=== PATIENT | female | born 1965 | race Caucasian/White ===

== ENCOUNTER 2017-07-07 08:44 | Emergency (ER) | payer SELFPAY ==
[2017-07-07] MEDS ORDERED: Meclizine HCl 25 MG TAB ONE (09:35)
== END 2017-07-07 10:53 | disposition home or self-care (01) ==
LOC: ERS 08:44
DX: R42 Dizziness and giddiness (principal); M32.9 Systemic lupus erythematosus, unspecified; M41.9 Scoliosis, unspecified; M81.0 Age-related osteoporosis without current pathological fracture; E05.90 Thyrotoxicosis, unspecified without thyrotoxic crisis or storm; F41.9 Anxiety disorder, unspecified; F31.9 Bipolar disorder, unspecified; F17.210 Nicotine dependence, cigarettes, uncomplicated; Z79.899 Other long term (current) drug therapy
CPT/HCPCS: 99284

== ENCOUNTER 2017-08-30 16:40 | Emergency (ER) | payer SELFPAY ==
[2017-08-30] MEDS ORDERED: Morphine 4 MG/ML VIAL ONE (17:22)
--- NOTE | 2017-08-30 17:35 | RAD ---
RIGHT HIP TWO VIEWS 08/30/17 INDICATION: Pain. Fall. There is no fracture or dislocation of the right hip. Mild degenerative changes are seen. IMPRESSION: No acute right hip fracture. POS: [facility]
--- NOTE | 2017-08-30 17:35 | RAD ---
FRONTAL VIEW PELVIS 08/30/17 CLINICAL HISTORY: Fall from standing, pain. FINDINGS: There is no fracture or dislocation of the osseous structures of the pelvis. Hip joints are maintaine d in alignment. IMPRESSION: No acute pelvic fracture. POS: [facility]
--- NOTE | 2017-08-30 17:36 | RAD ---
RIGHT ELBOW TWO VIEWS 08/30/17 INDICATION: Fall. Pain. FINDINGS: Mild osteoarthritis of the right elbow is present without fracture or dislocation. No significant remi nt capsular distention. IMPRESSION: No acute fracture of the right elbow. POS: [facility]
--- NOTE | 2017-08-30 18:33 | CT ---
CT PELVIS NONCONTRAST 08/30/17 HISTORY: Fall. Right hip injury. FINDINGS: No fracture or dislocation are apparent. The sacrum is intact. Mild degenerative changes involve the hips, lumbar spine, and pubic symphysis. Large amount of stool is apparent throughout the rectum and partially visualized colon. IMPRESSION: No acute osseous abnormalities are demonstrated. POS: [facility]
[2017-08-30 18:44] LABS: Bilirubin Negative (Negative); Blood, Urine Negative (Negative); Glucose, Urine (Dipstick) Negative (Negative); Ketone, Urine Negative (Negative); Nitrite Negative (Negative); Protein, Urine (Dipstick) Negative (Neg-Trace); Urobilinogen 0.2 mg/dL (0.2-1.0)
[2017-08-30 18:50] LABS: Amphetamine Not Detected (NotDetected); Methadone Not Detected (NotDetected); Methamphetamine Not Detected (NotDetected)
[2017-08-30] MEDS ORDERED: Fentanyl 100 MCG/2 ML VIAL ONE (19:17)
[2017-08-30] MEDS ORDERED: Ketorolac Tromethamine 30 MG/ML VIAL ONE (19:17)
== END 2017-08-30 19:50 | disposition home or self-care (01) ==
LOC: ERS 16:40
DX: S39.011A Strain of muscle, fascia and tendon of abdomen, initial encounter (principal); E05.90 Thyrotoxicosis, unspecified without thyrotoxic crisis or storm; F31.9 Bipolar disorder, unspecified; F41.9 Anxiety disorder, unspecified; F17.210 Nicotine dependence, cigarettes, uncomplicated; Z79.899 Other long term (current) drug therapy; W01.0XXA Fall on same level from slipping, tripping and stumbling without subsequent striking against object, initial encounter
CPT/HCPCS: 72170; 72192; 80306; 81003; 96374; 96375; 99406; J1885; J2270; J3010

== ENCOUNTER 2017-11-16 15:33 | Outpatient (CLI) | payer SELFPAY | END 2017-11-16 15:34 | disposition home or self-care (01) | LOC: BICRAD 15:33 | PROVIDERS: ATTEND Internal Medicine | DX: R05 Cough (principal) | CPT/HCPCS: 71046 ==

== ENCOUNTER 2017-11-30 11:14 | Outpatient (CLI) | payer MEDICAID | END 2017-11-30 11:15 | disposition home or self-care (01) | LOC: BICRAD 11:14 | PROVIDERS: ATTEND Internal Medicine | DX: J32.9 Chronic sinusitis, unspecified (principal) | CPT/HCPCS: 70220 ==

== ENCOUNTER 2018-03-17 17:32 | Emergency (ER) | payer MEDICAID, SELFPAY ==
[2018-03-17] MEDS ORDERED: Ketorolac Tromethamine 30 MG/ML VIAL ONE (17:51)
[2018-03-17] MEDS ORDERED: Lorazepam 2 MG/ML VIAL ONE (17:51)
[2018-03-17 18:09] LABS: #Basophils 0.1 thou/uL (0.0-0.2); #Eosinphils 0.1 thou/uL (0.0-0.7); #Lymphocytes 3.4 thou/uL (1.20-3.40); #Monocytes 1.2 thou/uL (0.11-0.59); #Neutrophils 9.5 thou/uL (1.40-6.50); %Basophils 0.7 % (0.0-1.0); %Eosinophils 0.9 % (0.0-10.0); %Lymphocytes 23.6 % (21.0-51.0); %Monocytes 8.3 % (0.0-10.0); %Neutrophils 66.5 % (42.0-75.0); Hemoglobin 13.8 g/dL (12.0-16.0); Mean Corpuscular HGB CONC 34.5 g/dL (32.0-36.0); Mean Corpuscular Hemoglobin 31.2 pg (27.0-31.0); Mean Corpuscular Volume 90.5 fl (81.0-99.0); Mean Platelet Volume 9.8 fL (7.4-10.4); Platelet Count 225 thou/uL (130-400); RBC Distribution Width 13.8 % (11.5-14.5); Red Blood Cell (RBC) Count 4.41 mill/uL (4.20-5.40); White Blood Cell (WBC) Count 14.3 thou/uL (4.8-10.8)
[2018-03-17 18:30] LABS: ALT (SGPT) 17 U/L (8-55); AST (SGOT) 22 U/L (5-34); Albumin 3.9 g/dL (3.5-5.0); Alkaline Phosphatase 100 U/L (40-150); Anion Gap 13 mmol/L (10-20); BUN (Urea Nitrogen) 34 mg/dL (9.8-20.1); Bilirubin, Total 0.6 mg/dL (0.2-1.2); Calc. Creatinine Clearance 0 mL/min (70-130); Carbon Dioxide 23 mmol/L (22-29); Chloride 100 mmol/L (98-107); Estimated GFR-MDRD 41; Globulin 3.4 g/dL (2.4-3.5); Glucose 115 mg/dL (70-105); Lipase 6 U/L (8-78); Potassium 3.3 mmol/L (3.5-5.1); Protein, Total 7.3 g/dL (6.0-8.3); Sodium 133 mmol/L (136-145)
--- NOTE | 2018-03-17 18:59 | CT ---
CT ABDOMEN AND PELVIS WITHOUT CONTRAST: INDICATIONS: Abdominal pain. Left lower back and flank pain. COMPARISON: Pelvic CT from 08/30/2017. TECHNIQUE: Multiple axial tomograms obtained through the abdomen and pelvis without IV enhancement. The exam wa s obtained with the patient on her right side. The patient refused to lie supine on the table. This distorts the anatomy due to the decubitus position. FINDINGS: Chronic parenchymal lung changes seen in the peripheral right lung base. The liver and spleen appear unremarkable. The pancreas is unremarkable for an unenhanced study. The adrenal glands are unremarkable. There is a small, nonobstructing calculus in the upper pole collecting structures of the left kidney, measuring approximately 3 mm. There is another tiny, nonobstructing calculus in the mid pole collec ting structures of the left kidney measuring in the 1 to 2 mm range. No evidence of hydronephrosis. No ureteral calculus identified. The bladder is mildly distended but appears unremarkable. Small bowel loops appears normal. An appendix is not identified. The cecum crosses the midline. St ool throughout the colon. The aorta is of normal caliber. No mass or adenopathy is seen. IMPRESSION: 1. There are small, nonobstructing calculi in the upper collecting structures of the left kidney. N o evidence of ureteral calculus or hydronephrosis. 2. No acute process noted. ADDENDUM: Review of the bone windows shows irregularity of the right pubic bone at the pubic symphysis. This m ay represent an old fracture, although I cannot completely exclude an acute fracture at this location . Recommend clinical correlation regarding trauma and tenderness at this site. POS: [facility]
[2018-03-17 19:00] LABS: Bilirubin Negative (Negative); Blood, Urine Negative (Negative); Clarity CLOUDY (Clear); Glucose, Urine (Dipstick) Negative (Negative); Leukocyte Negative (Negative); Nitrite Negative (Negative); Protein, Urine (Dipstick) Negative (Neg-Trace); Specific Gravity, Urine 1.014 (1.002-1.036)
--- NOTE | 2018-03-17 21:42 | RAD ---
PORTABLE CHEST: HISTORY: Mental status change. Also complains of back pain. FINDINGS: The lung cochran appear clear on this one view projection. Heart size is within the normal range. IMPRESSION: No acute abnormality identified. POS: [facility]
--- NOTE | 2018-03-17 22:20 | CT ---
CT HEAD WITHOUT CONTRAST: INDICATIONS: Mental status change. TECHNIQUE: Multiple axial tomograms obtained through the head without IV enhancement. FINDINGS: The ventricles have normal size and position. No evidence of intracranial mass or hemorrhage. The s inuses and mastoids are clear. IMPRESSION: No acute abnormality. POS: [facility]
[2018-03-17] MEDS ORDERED: HYDROcodone/Acetaminophen 5/325 mg Tablet ONE (23:51)
== END 2018-03-18 00:07 | disposition home or self-care (01) ==
LOC: ERS 17:32
DX: M54.42 Lumbago with sciatica, left side (principal); E05.00 Thyrotoxicosis with diffuse goiter without thyrotoxic crisis or storm; M32.9 Systemic lupus erythematosus, unspecified; F31.9 Bipolar disorder, unspecified; F41.9 Anxiety disorder, unspecified; F17.210 Nicotine dependence, cigarettes, uncomplicated; M41.9 Scoliosis, unspecified; M19.90 Unspecified osteoarthritis, unspecified site; Z79.899 Other long term (current) drug therapy
CPT/HCPCS: 36415; 51701; 70450; 71045; 74176; 80053; 81003; 83605; 83690; 84443; 85025; 93005; 96361; 96374; 96375; A4353; J1885; J2060

== ENCOUNTER 2019-01-04 20:50 | Observation (INO) | payer SELFPAY ==
[2019-01-04] MEDS ORDERED: diphenhydrAMINE 50 MG/ML VIAL ONE (21:58)
[2019-01-04] MEDS ORDERED: Metoclopramide HCl 10 MG/2 ML VIAL ONE (21:58)
[2019-01-04] MEDS ORDERED: Ketorolac Tromethamine 30 MG/ML VIAL ONE (21:58)
[2019-01-04 21:59] LABS: #Basophils 0.2 thou/uL (0.0-0.2); #Eosinphils 0.1 thou/uL (0.0-0.7); #Lymphocytes 4.1 thou/uL (1.20-3.40); #Monocytes 1.2 thou/uL (0.11-0.59); #Neutrophils 7.7 thou/uL (1.40-6.50); %Basophils 1.2 % (0.0-1.0); %Eosinophils 0.5 % (0.0-10.0); %Lymphocytes 31.2 % (21.0-51.0); %Monocytes 8.8 % (0.0-10.0); %Neutrophils 58.3 % (42.0-75.0); Mean Corpuscular HGB CONC 33.2 g/dL (32.0-36.0); Mean Corpuscular Hemoglobin 32.4 pg (27.0-31.0); Mean Corpuscular Volume 97.7 fL (78.0-98.0); Mean Platelet Volume 9.3 fL (7.4-10.4); Platelet Count 293 thou/uL (130-400); RBC Distribution Width 13.4 % (11.5-14.5); Red Blood Cell (RBC) Count 4.31 mill/uL (4.20-5.40); White Blood Cell (WBC) Count 13.1 thou/uL (4.8-10.8)
[2019-01-04 22:16] LABS: ALT (SGPT) 22 U/L (8-55); AST (SGOT) 24 U/L (5-34); Albumin 4.2 g/dL (3.5-5.0); Alkaline Phosphatase 98 U/L (40-150); Anion Gap 14 mmol/L (10-20); BUN (Urea Nitrogen) 29 mg/dL (9.8-20.1); Bilirubin, Total 0.3 mg/dL (0.2-1.2); Calc. Creatinine Clearance 0 mL/min (70-130); Calcium 9.8 mg/dL (7.8-10.44); Carbon Dioxide 24 mmol/L (22-29); Chloride 104 mmol/L (98-107); Estimated GFR-MDRD 51; Globulin 3.6 g/dL (2.4-3.5); Glucose 80 mg/dL (70-105); Potassium 4.1 mmol/L (3.5-5.1); Protein, Total 7.8 g/dL (6.0-8.3); Sodium 138 mmol/L (136-145)
[2019-01-04 23:10] LABS: Bilirubin Negative (Negative); Blood, Urine Negative (Negative); Clarity CLEAR (Clear); Glucose, Urine (Dipstick) Negative (Negative); Leukocyte Negative (Negative); Nitrite Negative (Negative); Protein, Urine (Dipstick) Negative (Neg-Trace); Specific Gravity, Urine 1.009 (1.002-1.036); Urobilinogen 0.2 mg/dL (0.2-1.0); pH, Urine 6.5 (5.0-9.0)
[2019-01-04 23:18] LABS: Amphetamine Not Detected (NotDetected); Barbiturates Screen Not Detected (NotDetected); Benzodiazepine Screen Not Detected (NotDetected); Cocaine Metabolite Screen Not Detected (NotDetected); Medtox Control Line Valid? VALID (VALID); Medtox Reader # READER 1; Methadone Not Detected (NotDetected); Methamphetamine Not Detected (NotDetected); Opiate Screen Not Detected (NotDetected); Oxycodone Screen Not Detected (NotDetected); Phencyclidine (PCP) Not Detected (NotDetected); THC/Cannabinoid Screen Not Detected (NotDetected); Tricyclic Screen Not Detected (NotDetected)
[2019-01-05] MEDS ORDERED: Acetaminophen 500 MG TAB ONE (00:02)
[2019-01-05] MEDS ORDERED: Magnesium 2 GM/50 ML BAG (IN WATER) ONE (00:02)
[2019-01-05 00:25] LABS: Free T4 (Free Thyroxine) 1.08 ng/dL (0.70-1.48); Thyroid Stimulating Hormone 10.5222 uIU/mL (0.35-4.94)
[2019-01-05] MEDS ORDERED: Lidocaine 1% (PF) 30 ML VIAL ONE (01:14)
[2019-01-05] MEDS ORDERED: Midazolam HCl 2 mg/2 ml Vial ONE (02:05)
[2019-01-05] MEDS ORDERED: Fentanyl 100 MCG/2 ML VIAL ONE (02:43)
[2019-01-05] MEDS ORDERED: Ondansetron PF 4 MG/2 ML Vial IVP PRN (03:58)
[2019-01-05] MEDS ORDERED: Acetaminophen 325 MG TAB PO PRN (03:58)
--- NOTE | 2019-01-05 04:08 | PDOC.EVN ---
Event Note - Event Note Event Note: H&P [id number]
[2019-01-05 05:32] VITALS: BMI 31.1
[2019-01-05] MEDS: Potassium Chloride 10 MEQ in Premix Bag 1 BAG IVPB SCH ×3 (09:19→13:21)
[2019-01-05] MEDS: Morphine 4 MG/ML VIAL SLOW IVP PRN ×4 (09:33→23:33)
--- NOTE | 2019-01-05 09:33 | CT ---
HEAD CT WITHOUT CONTRAST: DATE: 01/04/2019. COMPARISON: 03/17/2018. HISTORY: Malaise and frequent headaches. TECHNIQUE: Axial CT imaging at 5 mm intervals from vertex through skull base without contrast. FINDINGS: The imaged paranasal sinuses/mastoid air cells are well aerated. There is no displaced calvarial fra cture seen. There is no intracranial hemorrhage, midline shift, mass effect, or ventricular enlargement. IMPRESSION: No acute findings. POS: [facility]
[2019-01-05] MEDS ORDERED: Lorazepam 2 MG/ML VIAL ONE (10:38)
[2019-01-05] MEDS ORDERED: Ketorolac Tromethamine 30 MG/ML VIAL IVP PRN (11:09)
[2019-01-05] MEDS ORDERED: Lorazepam 2 MG/ML VIAL SLOW IVP SCH ×2 (11:15→13:30)
[2019-01-05] MEDS ORDERED: Dexamethasone 4 mg/ml Vial SLOW IVP SCH (11:15)
--- NOTE | 2019-01-05 13:01 | MRI ---
BRAIN MRI WITHOUT CONTRAST: HISTORY: Medicated patient. Headache. Blurred vision. Claustrophobia. COMPARISON: None. TECHNIQUE: Brain MRI is performed without intravenous Gadolinium administration. Multisequential, multiplanar i maging is performed. FINDINGS: Calvarium has a normal T1 marrow signal intensity. Midline brain parenchymal structures are unremark able. Central arterial flow voids are maintained. Absent restricted diffusion. No significant T2 or FLAIR white matter hyperintensities. Adequate aeration of the sinuses and masto id air cells. No hemorrhage on the axial gradient echo sequence. IMPRESSION: Limited evaluation due to motion degradation on multiple sequences. Unremarkable noncontrast brain M RI. POS: [facility]
[2019-01-05] MEDS: Metoclopramide HCl 10 MG/2 ML VIAL IVP SCH ×3 (13:33→23:34)
[2019-01-05] MEDS: Dihydroergotamine Mesylate 1 MG/ML AMP SLOW IVP SCH ×3 (13:35→23:34)
--- NOTE | 2019-01-05 14:03 | RAD ---
LUMBAR PUNCTURE WITH FLUOROSCOPIC GUIDANCE: HISTORY: Blurred vision and headache. COMPARISON: None. 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 Successful lumbar puncture with fluoroscopic guidance. Opening pressure is 9 cm of water. A total o f 9 cc of clear CSF was collected. TECHNIQUE: Consent was obtained to perform a lumbar puncture. The patient's back was evaluated. The L3-L4 leve l was deemed appropriate. The skin was prepped and draped in a sterile fashion. 1% Lidocaine, buffe red with sodium bicarbonate, was used for local anesthesia. Under fluoroscopic guidance, a 22-gauge spinal needle was advanced into the CSF space. There is prompt flow of clear CSF to the hub of the n eedle. Opening pressure was obtained, 9 cm of water. A total of 9 cc of clear CSF was collected. T he patient tolerated the procedure well. IMPRESSION: 1. Successful lumbar puncture. 2. 9 cm of water opening pressure. POS: [facility]
[2019-01-05 14:18] LABS: Color Of CSF Supernatant COLORLESS (Colorless); Tube # 2; Unspun CSF Color COLORLESS (Colorless)
[2019-01-05 14:32] LABS: CSF Source CSF; Clarity Clear (Clear); RBC Count - Manual 4 /cumm (None Seen); Tube # 4; WBC/NonHematics Count - Manual 3 /cumm (0-5)
[2019-01-05 14:33] LABS: CSF, Glucose 55 mg/dl (40-70); CSF, Protein 26 mg/dL (15-40)
[2019-01-05 15:03] LABS: CSF Source CSF; Clarity Clear (Clear); RBC Count - Manual 18 /cumm (None Seen); Tube # 1; WBC/NonHematics Count - Manual 1 /cumm (0-5)
--- NOTE | 2019-01-05 17:17 | CON ---
DATE OF CONSULTATION: 01/05/2019 CONSULTING PHYSICIAN: Hospitalist Service. IMPRESSION: Status migrainosus. PLAN: Gael protocol. HISTORY OF PRESENT ILLNESS: Ms. Leos is a 53-year-old white female with a history of migraine headaches. For the last 2 weeks, she has been having an off and on headache that has failed to break with [id number] medication. She was primarily treating it with Excedrin. The pain is holocephalic, it radiates from the occipital area forward, some associated nausea and vomiting. She denies any complex features, feels like this is very similar to the headache she has had most of her life. Otherwise, she is being treated for hypothyroidism. PAST MEDICAL HISTORY: Hypothyroidism. ALLERGIES: NONE REPORTED. SOCIAL HISTORY: No illicit drug use. FAMILY HISTORY: Noncontributory. MEDICATION LIST: Synthroid. REVIEW OF SYSTEMS: Ten system review of systems is otherwise unremarkable. PHYSICAL EXAMINATION: GENERAL: She is a well-nourished, middle-aged woman, in no acute distress. She reports a 7/10 headache. VITAL SIGNS: Stable. She is afebrile. Blood pressure within normal range. HEENT: Pupils are equal and reactive. Conjunctivae are clear. Oropharynx is clear. NECK: Supple. No lymphadenopathy. EXTREMITIES: No cyanosis or edema. NEUROLOGIC: She is alert and appropriate. Her speech is fluent and clear. No focal deficits are present. LABORATORY DATA: Laboratory studies: CBC, chemistry panel, and tox screen were unremarkable. TSH was elevated over 10. Free T4 was 1.04. DIAGNOSTIC DATA: EKG shows a sinus rhythm. SUMMARY: A middle-aged woman with persistent headache over the last 2 weeks. I suspect this is going to be migraine in origin and hopefully she will respond to this treatment. Job ID: [id number] [facility]
--- NOTE | 2019-01-05 20:54 | CON ---
DATE OF CONSULTATION: 01/05/2019 CONSULTING PHYSICIAN: Layton Wakefield DO REASON FOR CONSULT: Chronic kidney disease. REASON FOR ADMISSION: Headache. HISTORY OF PRESENT ILLNESS: A 53-year-old female with a history of osteoporosis, hypothyroidism, and neuropathy, came to the hospital with headache and has been seen. Nephrology was consulted for chronic kidney disease. No fever or chills. No nausea or vomiting. PAST MEDICAL HISTORY: Positive for lupus , hepatitis C, scoliosis, osteoporosis, and hypothyroidism. PAST SURGICAL HISTORY: Appendectomy, carpal tunnel surgery, and hysterectomy. HOME MEDICATIONS: Reviewed. ALLERGIES: CODEINE. SOCIAL HISTORY: No smoking, alcohol, or illicit drug abuse. FAMILY HISTORY: No history of kidney disease. REVIEW OF SYSTEMS: CONSTITUTIONAL: Negative for weight loss or gain, ability to conduct usual activities. SKIN: Negative for rash, itching. EYES: Negative for double vision, pain. ENT/MOUTH: Negative for nose bleeding, neck stiffness, pain, tenderness. CARDIOVASCULAR: Negative for palpitations, dyspnea on exertion, orthopnea. RESPIRATORY: Negative for shortness of breath, wheezing, cough, hemoptysis, fever or night sweats. GASTROINTESTINAL: Negative for poor appetite, abdominal pain, heartburn, nausea, vomiting, constipation, or diarrhea. GENITOURINARY: Negative for urgency, frequency, dysuria, nocturia. MUSCULOSKELETAL: Negative for pain, swelling. NEUROLOGIC/PSYCHIATRIC: Negative for anxiety, depression. ALLERGY/IMMUNOLOGIC: Negative for skin rash, bleeding tendency. PHYSICAL EXAMINATION: GENERAL: This is a well-built female, in no apparent distress. VITAL SIGNS: Temperature 98.0, pulse 78, respiratory rate 18, and blood pressure 134/63. HEENT: Atraumatic and normocephalic. Oral mucosa is moist. NECK: Supple. CV: S1 and S2 heard. Rate and rhythm regular. RESPIRATORY: Clear. GI: Abdomen is soft. MUSCULOSKELETAL: 1+ edema. DERMATOLOGIC: No skin rash. NEUROLOGIC: Alert and awake. PSYCHIATRIC: Normal mood and affect. LABORATORY DATA: Creatinine was 1.3 with a GFR of 41. ASSESSMENT AND PLAN: 1. Chronic kidney disease stage 3. Renal function seems to be stable and better. Avoid nephrotoxins. 2. Hypertension, stable. 3. Edema, controlled. Avoid nephrotoxins. Need chronic kidney disease workup. The patient was advised to follow up at clinic. Thank you for the consult. Job ID: [id number]
[2019-01-05] MEDS: Nortriptyline HCl 25 MG CAP PO SCH (21:33)
[2019-01-05] MEDS: Zolpidem Tartrate 5 MG TAB PO PRN (21:50)
[2019-01-06] MEDS: Morphine 4 MG/ML VIAL SLOW IVP PRN (04:09)
[2019-01-06] MEDS: Metoclopramide HCl 10 MG/2 ML VIAL IVP SCH (05:23)
[2019-01-06] MEDS: Dihydroergotamine Mesylate 1 MG/ML AMP SLOW IVP SCH (05:24)
[2019-01-06 05:40] LABS: #Basophils 0.1 thou/uL (0.0-0.2); #Lymphocytes 1.5 thou/uL (1.20-3.40); #Monocytes 0.8 thou/uL (0.11-0.59); %Basophils 0.6 % (0.0-1.0); %Eosinophils 0.1 % (0.0-10.0); %Lymphocytes 14.4 % (21.0-51.0); %Monocytes 7.6 % (0.0-10.0); %Neutrophils 77.3 % (42.0-75.0); Hemoglobin 13.7 g/dL (12.0-16.0); Mean Corpuscular HGB CONC 30.8 g/dL (32.0-36.0); Mean Corpuscular Hemoglobin 30.8 pg (27.0-31.0); Mean Platelet Volume 9.7 fL (7.4-10.4); Platelet Count 302 thou/uL (130-400); RBC Distribution Width 13.3 % (11.5-14.5); Red Blood Cell (RBC) Count 4.45 mill/uL (4.20-5.40); White Blood Cell (WBC) Count 10.4 thou/uL (4.8-10.8)
[2019-01-06 05:56] LABS: Anion Gap 11 mmol/L (10-20); BUN (Urea Nitrogen) 22 mg/dL (9.8-20.1); Calc. Creatinine Clearance 98 mL/min (70-130); Calcium 9.3 mg/dL (7.8-10.44); Carbon Dioxide 26 mmol/L (22-29); Chloride 105 mmol/L (98-107); Estimated GFR-MDRD 70; Glucose 95 mg/dL (70-105); Sodium 137 mmol/L (136-145)
--- NOTE | 2019-01-06 07:39 | HP ---
ADMITTING DIAGNOSES: Headache and blurry vision. HISTORY OF PRESENT ILLNESS: This is a 53-year-old female who started to have headaches and blurry vision last night and decided to come to the ER. The patient was found to have significant headache as well as some blurry vision. No other neuro-focal deficits were noted. The patient stated that the onset was pretty sudden, did not have any other associated symptoms. The patient is seen and examined in the ER. All questions answered. ALLERGIES: NO KNOWN DRUG ALLERGIES. PAST MEDICAL HISTORY: None. HOME MEDICATIONS: None. SOCIAL HISTORY: Social drinker. Nonsmoker. FAMILY HISTORY: Positive for hypertension, diabetes. PHYSICAL EXAMINATION: VITAL SIGNS: Blood pressure was 128/88, heart rate of 100, respiratory rate of 18, and O2 saturations 100% on room air. GENERAL: The patient lying in bed, in no acute discomfort. HEENT: Extraocular muscles intact. Oral cavity moist and pink. Normocephalic and atraumatic. Pupils equal, round, and reactive to light and accommodation. NECK: Supple, mobile, nontender. Thyroid appreciated. PULMONARY: Clear to auscultation bilaterally. No tachypnea noted. No rales, wheezing, or rhonchi noted. CARDIOVASCULAR: S1, S2. No rubs, gallops, or murmurs appreciated. ABDOMEN: Positive bowel sounds. Soft, nontender, nondistended. EXTREMITIES: 2+ peripheral pulses noted. No cyanosis, clubbing, or edema. NEUROLOGICAL: Cranial nerves 2 through 12 intact. Alert and oriented x3. LABORATORY DATA: CBC shows WBC count of 13, otherwise normal. Basic metabolic panel shows creatinine 1.1, TSH 10.5, otherwise normal. Urinalysis negative. Toxicology negative. IMAGING STUDIES: CT head negative. Official read is pending. ASSESSMENT: 1. Blurry vision. 2. Headache. 3. Hypertension. PLAN: At this point in time, we will admit the patient to observation services. We will consult Neurology as well. IR consulted from ER for LP. LP attempted by ER resident as well as ER physician, but unable possibly due. to pain medication, so we will consult IR for LP. The patient otherwise does not have any signs or symptoms of meningitis. Chin to chest test was negative and no fevers or sepsis noted to hold off on antibiotics. The patient was given antibiotics in the ER. At this point in time, blood cultures will be ordered. CSF studies already ordered, pending analysis. The patient wishes to remain a full code. Case and plan discussed with the patient at length. She understood and agreed with this plan. Job ID: [id number]
[2019-01-06] MEDS: Ondansetron ODT 4 MG TAB SL PRN (11:06)
[2019-01-06] MEDS ORDERED: traMADol HCl 50 MG TAB PO SCH (14:00)
[2019-01-06] MEDS ORDERED: Magnesium Citrate 300 ML BOT PO SCH (14:30)
--- NOTE | 2019-01-06 14:38 | PDOC.PN ---
- Subjective Encounter Start Date: 01/06/19 Encounter Start Time: 08:20 Pt seen for followup re: migraine headache. Reports ongoing headache. - Objective Resuscitation Status - Order Detail: 01/05/19 03:58 Resuscitation Status Routine Resuscitation Status: FULL: Full Resuscitation Discussed with: myke BENÍTEZ Reviewed: Yes Vital Signs & Weight: Vital Signs (12 hours) Temp Pulse Resp BP Pulse Ox 01/06/19 11:24 99.1 F 75 16 114/57 L 98 01/06/19 06:56 98.6 F 85 16 121/66 93 L 01/06/19 04:10 98.3 F 79 18 125/61 94 L Weight Weight 181 lb 12.8 oz I&O: 01/05/19 01/06/19 01/07/19 06:59 06:59 06:59 Intake Total 50 1320 Balance 50 1320 Result Diagrams: 01/06/19 04:41 01/06/19 04:41 EKG Reviewed by me: Yes (Tele; NSR) Phys Exam - Physical Examination Obese HEENT: moist MMs, sclera anicteric, oral pharynx no lesions, 2+ tonsils Neck: no nodes, no JVD, supple, full ROM Respiratory: clear to auscultation bilateral Cardiovascular: RRR, no rub S1, S2 Gastrointestinal: soft, non-tender, no distention, positive bowel sounds Neurological: moves all 4 limbs Psychiatric: normal affect, A&O x 3 Dx/Plan (1) Migraine Code(s): G43.909 - MIGRAINE, UNSP, NOT INTRACTABLE, WITHOUT STATUS MIGRAINOSUS Status: Acute Comment: Pt on Gael protocol, slow to improve (2) CKD (chronic kidney disease) Code(s): N18.9 - CHRONIC KIDNEY DISEASE, UNSPECIFIED Status: Chronic Comment : stable (3) HTN (hypertension) Code(s): I10 - ESSENTIAL (PRIMARY) HYPERTENSION Status: Chronic Comment: controlled - Plan * . Review of Systems - Review of Systems Constitutional: negative: fever, chills, sweats, weakness, malaise Cardiovascular: negative: chest pain, palpitations, orthopnea, paroxysmal nocturnal dyspnea, edema, light headedness Gastrointestinal: negative: Nausea, Vomiting, Abdominal Pain, Diarrhea, Constipation, Melena, Hematochezia Genitourinary: negative: Dysuria, Frequency, Incontinence, Hematuria, Retention Skin: negative: Rash, Lesions, Osito, Bruising Neurological: Other (headache) - Medications/Allergies Allergies/Adverse Reactions: Allergies Allergy/AdvReac Type Severity Reaction Status Date / Time codeine Allergy Verified 01/05/19 05:45 Medications: Current Medications Acetaminophen (Tylenol) 650 mg PO Q4H PRN PRN Reason: Headache/Fever/Mild Pain (1-3) Ketorolac Tromethamine (Toradol) 30 mg IVP Q6H PRN PRN Reason: Pain Stop: 01/10/19 11:10 Last Admin: 01/06/19 09:28 Dose: 30 mg Magnesium Citrate (Citrate Of Magnesia 300 Ml Bot) 300 ml PO NOW [facility] Stop: 01/06/19 15:30 Morphine Sulfate (Morphine) 2 mg SLOW IVP Q4H PRN PRN Reason: Pain Last Admin: 01/06/19 04:09 Dose: 2 mg Nortriptyline HCl (Pamelor) 25 mg PO HS [facility] Last Admin: 01/05/19 21:33 Dose: 25 mg Ondansetron HCl (Zofran) 4 mg IVP Q6H PRN PRN Reason: Nausea/Vomiting Ondansetron HCl (Zofran Odt) 4 mg SL Q6H PRN PRN Reason: Nausea/Vomiting Last Admin: 01/06/19 11:06 Dose: 4 mg Sodium Chloride (Flush - Normal Saline) 10 ml IVF Q12HR RASHMI Last Admin: 01/06/19 09:29 Dose: 10 ml Sodium Chloride (Flush - Normal Saline) 10 ml IVF PRN PRN PRN Reason: Saline Flush Last Admin: 01/05/19 23:35 Dose: 10 ml Tramadol HCl (Ultram) 100 mg PO NOW [facility] Stop: 01/06/19 15:00 Zolpidem Tartrate (Ambien) 5 mg PO HSPRN PRN PRN Reason: Insomnia Last Admin: 01/05/19 21:50 Dose: 5 mg
[2019-01-06] MEDS ORDERED: Haloperidol Lactate 5 MG/ML VIAL SLOW IVP SCH (16:00)
[2019-01-06] MEDS ORDERED: Haloperidol Lactate 5 MG/ML VIAL IM SCH (17:45)
[2019-01-06] MEDS: Nortriptyline HCl 25 MG CAP PO SCH (20:29)
[2019-01-07] MEDS: Morphine 4 MG/ML VIAL SLOW IVP PRN ×4 (01:10→16:36)
[2019-01-07] MEDS: Ondansetron ODT 4 MG TAB SL PRN ×2 (08:44→14:23)
[2019-01-07 12:56] LABS: #Basophils 0.1 thou/uL (0.0-0.2); #Eosinphils 0.1 thou/uL (0.0-0.7); #Lymphocytes 3.4 thou/uL (1.20-3.40); #Monocytes 0.8 thou/uL (0.11-0.59); #Neutrophils 5.7 thou/uL (1.40-6.50); %Basophils 0.8 % (0.0-1.0); %Eosinophils 0.5 % (0.0-10.0); %Lymphocytes 33.6 % (21.0-51.0); %Monocytes 8.3 % (0.0-10.0); %Neutrophils 56.7 % (42.0-75.0); Hemoglobin 13.6 g/dL (12.0-16.0); Mean Corpuscular HGB CONC 32.3 g/dL (32.0-36.0); Mean Corpuscular Hemoglobin 32.2 pg (27.0-31.0); Mean Corpuscular Volume 99.8 fL (78.0-98.0); Mean Platelet Volume 9.3 fL (7.4-10.4); Platelet Count 270 thou/uL (130-400); RBC Distribution Width 13.5 % (11.5-14.5); Red Blood Cell (RBC) Count 4.23 mill/uL (4.20-5.40)
[2019-01-07 13:15] LABS: Anion Gap 9 mmol/L (10-20); BUN (Urea Nitrogen) 20 mg/dL (9.8-20.1); Calc. Creatinine Clearance 102 mL/min (70-130); Carbon Dioxide 30 mmol/L (22-29); Chloride 103 mmol/L (98-107); Estimated GFR-MDRD 73; Glucose 86 mg/dL (70-105); Sodium 138 mmol/L (136-145)
--- NOTE | 2019-01-07 14:55 | PDOC.PN ---
- Subjective Encounter Start Date: 01/07/19 Encounter Start Time: 08:40 Pt seen for followup re: migraine. Reports minimal relief with treatments so far. - Objective Resuscitation Status - Order Detail: 01/05/19 03:58 Resuscitation Status Routine Resuscitation Status: FULL: Full Resuscitation Discussed with: patient Vital Signs & Weight: Vital Signs (12 hours) Temp Pulse Resp BP Pulse Ox 01/07/19 11:45 98.1 F 68 16 122/70 01/07/19 07:10 97.9 F 66 16 109/60 96 01/07/19 04:08 97.5 F L 71 14 125/62 96 Weight Weight 181 lb 12.8 oz I&O: 01/06/19 01/07/19 01/08/19 06:59 06:59 06:59 Intake Total 1320 1740 Output Total 600 Balance 1320 1140 Result Diagrams: 01/07/19 12:47 01/07/19 12:47 Phys Exam - Physical Examination Obese HEENT: moist MMs Neck: supple Respiratory: clear to auscultation bilateral Cardiovascular: RRR Gastrointestinal: soft Neurological: non-focal, normal sensation, moves all 4 limbs Psychiatric: normal affect Dx/Plan (1) Migraine Code(s): G43.909 - MIGRAINE, UNSP, NOT INTRACTABLE, WITHOUT STATUS MIGRAINOSUS Status: Acute Comment: Pt on Gael protocol, may need neuro reeval (2) CKD (chronic kidney disease) Code(s): N18.9 - CHRONIC KIDNEY DISEASE, UNSPECIFIED Status: Chronic Comment : stable (3) HTN (hypertension) Code(s): I10 - ESSENTIAL (PRIMARY) HYPERTENSION Status: Chronic Comment: controlled - Plan * . Review of Systems - Review of Systems Cardiovascular: negative: chest pain, palpitations, orthopnea, paroxysmal nocturnal dyspnea, edema, light headedness Gastrointestinal: negative: Nausea, Vomiting, Abdominal Pain, Diarrhea, Constipation, Melena, Hematochezia Neurological: Other (headache) - Medications/Allergies Allergies/Adverse Reactions: Allergies Allergy/AdvReac Type Severity Reaction Status Date / Time codeine Allergy Verified 01/05/19 05:45 Medications: Current Medications Acetaminophen (Tylenol) 650 mg PO Q4H PRN PRN Reason: Headache/Fever/Mild Pain (1-3) Ketorolac Tromethamine (Toradol) 30 mg IVP Q6H PRN PRN Reason: Pain Stop: 01/10/19 11:10 Last Admin: 01/06/19 09:28 Dose: 30 mg Morphine Sulfate (Morphine) 2 mg SLOW IVP Q4H PRN PRN Reason: Pain Last Admin: 01/07/19 11:01 Dose: 2 mg Nortriptyline HCl (Pamelor) 25 mg PO HS [facility]ASHMI Last Admin: 01/06/19 20:29 Dose: 25 mg Ondansetron HCl (Zofran) 4 mg IVP Q6H PRN PRN Reason: Nausea/Vomiting Ondansetron HCl (Zofran Odt) 4 mg SL Q6H PRN PRN Reason: Nausea/Vomiting Last Admin: 01/07/19 14:23 Dose: 4 mg Sodium Chloride (Flush - Normal Saline) 10 ml IVF Q12HR RASHMI Last Admin: 01/07/19 08:45 Dose: 10 ml Sodium Chloride (Flush - Normal Saline) 10 ml IVF PRN PRN PRN Reason: Saline Flush Last Admin: 01/05/19 23:35 Dose: 10 ml Zolpidem Tartrate (Ambien) 5 mg PO HSPRN PRN PRN Reason: Insomnia Last Admin: 01/05/19 21:50 Dose: 5 mg
[2019-01-07] MEDS: Calcium Carbonate 500 MG ChewTAB PO PRN (16:37)
[2019-01-07] MEDS: Nortriptyline HCl 25 MG CAP PO SCH (20:09)
[2019-01-07] MEDS: HYDROcodone/Acetaminophen 5/325 mg Tablet PO PRN (20:09)
[2019-01-07] MEDS: Zolpidem Tartrate 5 MG TAB PO PRN (20:10)
[2019-01-08] MEDS: HYDROcodone/Acetaminophen 5/325 mg Tablet PO PRN ×3 (00:53→13:14)
[2019-01-08] MEDS: Zolpidem Tartrate 5 MG TAB PO PRN (00:53)
[2019-01-08 07:32] LABS: #Basophils 0.1 thou/uL (0.0-0.2); #Eosinphils 0.1 thou/uL (0.0-0.7); #Lymphocytes 3.4 thou/uL (1.20-3.40); #Monocytes 0.9 thou/uL (0.11-0.59); #Neutrophils 4.1 thou/uL (1.40-6.50); %Basophils 1.4 % (0.0-1.0); %Eosinophils 1.2 % (0.0-10.0); %Lymphocytes 39.2 % (21.0-51.0); %Monocytes 10.2 % (0.0-10.0); Hemoglobin 13.6 g/dL (12.0-16.0); Mean Corpuscular HGB CONC 31.9 g/dL (32.0-36.0); Mean Corpuscular Hemoglobin 32.5 pg (27.0-31.0); Mean Platelet Volume 9.4 fL (7.4-10.4); Platelet Count 269 thou/uL (130-400); RBC Distribution Width 13.4 % (11.5-14.5); Red Blood Cell (RBC) Count 4.17 mill/uL (4.20-5.40); White Blood Cell (WBC) Count 8.6 thou/uL (4.8-10.8)
[2019-01-08] MEDS: Ondansetron ODT 4 MG TAB SL PRN ×2 (07:39→13:15)
[2019-01-08 07:58] LABS: Anion Gap 11 mmol/L (10-20); BUN (Urea Nitrogen) 16 mg/dL (9.8-20.1); Calc. Creatinine Clearance 105 mL/min (70-130); Calcium 8.9 mg/dL (7.8-10.44); Carbon Dioxide 28 mmol/L (22-29); Chloride 102 mmol/L (98-107); Estimated GFR-MDRD 75; Glucose 80 mg/dL (70-105); Potassium 4.6 mmol/L (3.5-5.1); Sodium 136 mmol/L (136-145)
[2019-01-08] MEDS: Calcium Carbonate 500 MG ChewTAB PO PRN (11:51)
[2019-01-08 16:15] VITALS: BP 135/70; TEMP 98.5
[2019-01-08] MEDS ORDERED: Acetaminophen/Codeine 30-300mg Tablet PO PRN (16:44)
--- NOTE | 2019-01-08 17:12 | DIS ---
DATE OF ADMISSION: 01/05/2019 DATE OF DISCHARGE: 01/08/2019 PRIMARY CARE PROVIDERS: 1. [facility]. 2. [facility]. Please note that patient was previously with [facility], but is planning to establish care with [facility]. DISCHARGE DIAGNOSES: 1. Intractable headache. 2. Chronic kidney disease, stage 3. CONSULTATIONS DURING THIS HOSPITALIZATION: 1. Neurology, Rj Glover MD. 2. Nephrology, Kamala Parry MD. CONDITION OF PATIENT ON THE DAY OF DISCHARGE: Stable. I assessed Ms. Leos on the day of discharge. She reports significant improvement in her headache. She denies any fevers or chills. Vital signs are stable. S1 and S2 are heard, regular. Lungs are clear to auscultation bilaterally. DISCHARGE MEDICATIONS: 1. Ventolin HFA p.r.n. 2. Aspirin 81 mg daily. 3. Depakote 500 mg at bedtime. 4. Gabapentin 300 mg at bedtime. 5. Feosol 65 mg daily. 6. Levothyroxine 150 mcg daily. 7. Omeprazole 20 mg daily. 8. Seroquel 25 mg at bedtime. 9. Tylenol No. 3 one tablet every 8 hours as needed, with a prescription for 10 tablets. HOSPITAL COURSE: Ms. Leos is a pleasant 53-year-old lady, who was admitted to [facility] on January 05, 2019, for intractable headache and blurry vision. Please refer to Dr. Wakefield's history and physical note dated January 05, 2019, for further details regarding this admission. Bedside lumbar puncture was unsuccessful. She underwent fluoroscopic-guided lumbar puncture on January 05. The opening pressure was 9 cm of water. Analysis showed rbc's that decreased by the 4th tube, 1-3 wbc's, glucose 55, and total protein 26. At the time of this dictation, preliminary cultures are negative, both of CSF and venous blood. She is advised to follow up with her primary care provider for final culture reports. She was trialed several medications. She was seen by Neurology Service. Her headache improved. She had initially listed codeine as an allergy when she came to the hospital. On further questioning, she reported that it is not a true allergy but had made her stomach upset once in the past. She is being discharged home with a prescription for Tylenol No. 3. I offered her tramadol as a choice, but she did not wish to have tramadol and wished to try Tylenol No. 3. Many thanks for allowing me to participate in your patient's care. Please feel free to contact me with any questions or concerns. On the day of discharge, she has white count 8600, hemoglobin 13.6, platelet count 269,000, normal electrolytes and normal creatinine. Her TSH was elevated at 10.52 during this admission. Free T4 was normal. She reports that the elevated TSH is a chronic issue and she had investigations done through her primary care provider. DISCHARGE DESTINATION: Home. Job ID: [id number]
--- NOTE | 2019-01-11 22:04 | EKG ---
Test Reason : Blood Pressure : / mmHG Vent. Rate : 084 BPM Atrial Rate : 084 BPM P-R Int : 118 ms QRS Dur : 082 ms QT Int : 392 ms P-R-T Axes : 022 042 031 degrees QTc Int : 463 ms Normal sinus rhythm Normal ECG Confirmed by NEVILLE CAMARA ([id number]), news videotape editor KRISTINE PURCELL ([id number]) on 01/11/2019 10:04:23 PM Referred By: Confirmed By:NEVILLE CAMARA
== END 2019-01-08 17:28 | disposition home or self-care (01) ==
LOC: ERS 20:50 → 2SW 01-05 05:20
PROVIDERS: ADMIT Internal Medicine; ATTEND Internal Medicine
PROC: 00JU3ZZ Inspection of Spinal Canal, Percutaneous Approach (ICD-10-PCS; principal; 2019-01-05)
DX: G43.909 Migraine, unspecified, not intractable, without status migrainosus (principal); H53.8 Other visual disturbances; E03.9 Hypothyroidism, unspecified; I12.9 Hypertensive chronic kidney disease with stage 1 through stage 4 chronic kidney disease, or unspecified chronic kidney disease; N18.3 Chronic kidney disease, stage 3 (moderate); M81.0 Age-related osteoporosis without current pathological fracture; G62.9 Polyneuropathy, unspecified; Z79.82 Long term (current) use of aspirin; Z79.899 Other long term (current) drug therapy; Z88.5 Allergy status to narcotic agent
CPT/HCPCS: 36415; 36416; 62270; 70450; 70551; 80048; 80053; 80306; 81003; 82945; 84155; 84157; 84439; 84443; 84484; 85025; 87040; 87070; 87205; 89051; 90471; 90732; 93005; 96361; 96365; 96367; 96372; 96375; 96376; C1713; G0009; G0378; J1100; J1110; J1200; J1630; J1885; J2001; J2060; J2250; J2270; J2405; J2765; J3010; J3475; J3480; Q0162

== ENCOUNTER 2019-10-17 09:49 | Outpatient (CLI) | payer MEDICARE, MEDICAID ==
--- NOTE | 2019-10-17 10:19 | ULT ---
US Abdominal History: Abdominal pain. Abnormal liver function tests. Chronic hepatitis C. Comparison: None. Findings: Real-time grayscale and color evaluation of the abdomen was performed. The visualized portion of the pancreas aorta and IVC are unremarkable although limited. Gallbladder i s normal. No cholelithiasis or evidence of cholecystitis. No intrahepatic or extrahepatic biliary dilatation. Common bile duct measures 4 mm. Portal vein is patent with antegrade flow. Mild coarsened hepatic echotexture. No hepatic mass. Liver measures 14.3 cm in length. Right kidney measures 9 x 4.8 x 3.9 cm without mass, hydronephrosis , or abnormal calcifications. The left kidney measures 9.1 x 4.8 x 4.1 cm without mass, hydronephrosis, or abnormal calcifications. The spleen is not well seen Impression: 1. No acute intra-abdominal abnormality. 2. Mild coarsened hepatic echotexture can be seen with hepatocellular dysfunction and chronic hepatit is. No mass.
== END 2019-10-17 09:50 | disposition home or self-care (01) ==
LOC: BICULT 09:49
PROVIDERS: ATTEND Internal Medicine Gastroenterology
DX: K21.9 Gastro-esophageal reflux disease without esophagitis (principal); B18.2 Chronic viral hepatitis C; J44.9 Chronic obstructive pulmonary disease, unspecified; R94.5 Abnormal results of liver function studies; M25.561 Pain in right knee; K76.89 Other specified diseases of liver; Z80.0 Family history of malignant neoplasm of digestive organs
CPT/HCPCS: 93975

== ENCOUNTER 2020-02-13 07:16 | Day surgery (SDC) | payer MEDICARE, MEDICAID ==
[2020-02-13 07:41] LABS: Hemoglobin 14.3 g/dL (12.0-16.0); Mean Corpuscular HGB CONC 32.1 g/dL (32.0-36.0); Mean Corpuscular Hemoglobin 31.8 pg (27.0-31.0); Mean Corpuscular Volume 99.1 fL (78.0-98.0); Mean Platelet Volume 10.3 fL (7.4-10.4); Platelet Count 204 thou/uL (130-400); RBC Distribution Width 13.8 % (11.5-14.5)
[2020-02-13 07:54] LABS: INR-International Normal Ratio 0.8; PTT 26.7 SEC (22.9-36.1)
[2020-02-13 08:01] LABS: Band 1 % (5-11); Eosinophils 1 % (0-10); Lymphocytes 50 % (21-51); MDiff Complete? YES; Monocytes 14 % (0-10); Neutrophil 33 % (42-75); RBC Morphology Normal
[2020-02-13] MEDS ORDERED: Fentanyl 100 MCG/2 ML VIAL ONE (08:34)
[2020-02-13] MEDS ORDERED: Lidocaine 1% PF 5 ML VIAL ONE (08:34)
[2020-02-13] MEDS ORDERED: Sodium Bicarbonate 2.5 MEQ/5 ML VIAL ONE (08:34)
[2020-02-13] MEDS ORDERED: Midazolam HCl 2 mg/2 ml Vial ONE (08:34)
--- NOTE | 2020-02-13 09:36 | ULT ---
Exam: Ultrasound guided random liver biopsy HISTORY: Abnormal liver function test FINDINGS: Technically successful random liver biopsy. A single 18-gauge core biopsy samples obtained. TECHNIQUE: Consent obtained reformatory ultrasound-guided random liver biopsy. Patient's abdomen was evaluated. Left lobe of the liver was deemed appropriate. Skin was prepped and draped in a sterile fashion. 1% lidocaine, buffered with sodium bicarbonate was used for local anesthesia. Under sonograp hic guidance, a 18-gauge biopsy needles advanced into the hepatic parenchyma. A single sample was obtained and placed directly in formalin. Patient tolerated the procedure well. No immediate or postp rocedural complications. Postbiopsy images do not demonstrate significant intraparenchymal or perihepatic hematoma. Contrast sedation: 100 mcg fentanyl IV 2 mg of Versed IV IMPRESSION: Successful random liver biopsy. Final pathologic diagnosis is pending.
[2020-02-13 09:59] VITALS: BP 113/61; TEMP 98.2
== END 2020-02-13 10:45 | disposition home or self-care (01) ==
LOC: ULT 07:16
PROVIDERS: ATTEND Internal Medicine Gastroenterology
PROC: 0FB23ZX Excision of Left Lobe Liver, Percutaneous Approach, Diagnostic (ICD-10-PCS; principal; 2020-02-13)
DX: B18.2 Chronic viral hepatitis C (principal); K74.0 Hepatic fibrosis; K21.9 Gastro-esophageal reflux disease without esophagitis; F17.210 Nicotine dependence, cigarettes, uncomplicated; J44.9 Chronic obstructive pulmonary disease, unspecified; M81.0 Age-related osteoporosis without current pathological fracture; F31.9 Bipolar disorder, unspecified; F41.9 Anxiety disorder, unspecified; E07.9 Disorder of thyroid, unspecified; N18.9 Chronic kidney disease, unspecified; E66.3 Overweight; Z68.32 Body mass index [BMI] 32.0-32.9, adult; Z79.899 Other long term (current) drug therapy; Z88.5 Allergy status to narcotic agent
CPT/HCPCS: 47000; 76942; 85025; 85610; 85730; 88307; 88313; 88321; J2001; J2250; J3010

== ENCOUNTER 2020-09-28 08:40 | Observation (INO) | payer MEDICARE, MEDICAID ==
[2020-09-28] MEDS ORDERED: Ketorolac Tromethamine 30 MG/ML VIAL ONE (09:20)
[2020-09-28] MEDS ORDERED: Ondansetron PF 4 MG/2 ML Vial ONE (09:20)
[2020-09-28 09:25] LABS: #Basophils 0.1 thou/uL (0.0-0.2); #Monocytes 1.4 thou/uL (0.11-0.59); #Neutrophils 9.2 thou/uL (1.40-6.50); %Basophils 0.9 % (0.0-1.0); %Eosinophils 0.2 % (0.0-10.0); %Lymphocytes 31.5 % (21.0-51.0); %Neutrophils 58.3 % (42.0-75.0); Hemoglobin 14.2 g/dL (12.0-16.0); Mean Corpuscular HGB CONC 33.9 g/dL (32.0-36.0); Mean Corpuscular Hemoglobin 32.6 pg (27.0-31.0); Mean Corpuscular Volume 96.1 fL (78.0-98.0); Platelet Count 288 thou/uL (130-400); RBC Distribution Width 13.4 % (11.5-14.5); Red Blood Cell (RBC) Count 4.37 mill/uL (4.20-5.40); White Blood Cell (WBC) Count 15.8 thou/uL (4.8-10.8)
--- NOTE | 2020-09-28 09:28 | RAD ---
XR Chest 1 View Portable History: Chest pain Comparison: None. Findings: Lungs are clear. No pneumothorax or effusion. Cardiac silhouette and mediastinal contours a re within normal limits. No acute osseous abnormality. Impression: No acute intrathoracic abnormality.
[2020-09-28] MEDS ORDERED: Iopamidol-370 76% 500 ML 1 ML ONE (09:42)
[2020-09-28 09:45] LABS: ALT (SGPT) 11 U/L (8-55); AST (SGOT) 17 U/L (5-34); Albumin 3.8 g/dL (3.5-5.0); Alkaline Phosphatase 113 U/L (40-110); Anion Gap 14 mmol/L (10-20); BUN (Urea Nitrogen) 11 mg/dL (9.8-20.1); Bilirubin, Total 0.3 mg/dL (0.2-1.2); Calc. Creatinine Clearance 0 mL/min (70-130); Calcium 8.9 mg/dL (7.8-10.44); Carbon Dioxide 23 mmol/L (22-29); Chloride 105 mmol/L (98-107); Globulin 3.8 g/dL (2.4-3.5); Glucose 112 mg/dL (70-105); Lipase 10 U/L (8-78); Potassium 4.1 mmol/L (3.5-5.1); Protein, Total 7.6 g/dL (6.0-8.3); Sodium 138 mmol/L (136-145)
--- NOTE | 2020-09-28 09:52 | ULT ---
Exam: Right upper quadrant ultrasound: HISTORY: Severe epigastric abdominal pain. COMPARISON: Abdominal ultrasound 10/17/2019 FINDINGS: Liver: Enlarged in craniocaudal dimensions measuring 18 cm. Portions of the liver are not well evalua kamla due to shadowing from the body wall, but the liver does demonstrate a mildly coarsened echotexture. No definitive hepatic lesion is appreciated. Gallbladder: No evidence of gallbladder calculi, gallbladder wall thickening, or pericholecystic flui d. Common bile duct: The common duct is normal in caliber measuring 0.1 cm in diameter. Pancreas: Mostly obscured by bowel gas. Right kidney: Right kidney is small in size measuring 7.8 cm in length. There is mild renal cortical thinning. IVC: The visualized IVC demonstrates a normal sonographic appearance. IMPRESSION: 1. Mildly coarsened echotexture of the liver which is nonspecific but can be seen with hepatocellular dysfunction or hepatitis. Hepatomegaly is present. 2. Small size of the right kidney with mild renal cortical thinning. 3. No gallbladder calculus is seen, and the common duct is normal in caliber.
[2020-09-28 11:25] LABS: Bilirubin Negative (Negative); Blood, Urine Negative (Negative); Clarity Clear (Clear); Glucose, Urine (Dipstick) Normal (Negative); Ketone, Urine Negative (Negative); Leukocyte 25 Leu/uL (Negative); Nitrite Negative (Negative); Protein, Urine (Dipstick) Negative (Neg-Trace); RBC/HPF 0-3 HPF (0-3); Specific Gravity, Urine 1.004 (1.002-1.036); Urobilinogen Normal mg/dL (Less than 2)
[2020-09-28 11:32] LABS: Bacteria/HPF Rare-Few HPF (None Seen)
--- NOTE | 2020-09-28 11:43 | PDOC.FPRHP ---
- History of Present Illness Chief Complaint: CP/Epigastric Pain History of Present Illness: 55 y/o F presents to the ER today with two weeks of LUQ abdominal pain with worsening of her pain in the past two days. She states that the pain is sharp and stabbing in nature and at first her pain waxed and waned and now her pain is constant. She admits to nausea and denies vomiting and diarrhea. The pain is not located in her L chest but when asked to point to her pain she points to her epigastric/substernal area; she denied weakness/numbness on one side of her body and facial droop/slurring of her words. There are no remitting or exacerbating factors. She has been taking her medications, especially her ones for her GERD with no relief of her symptoms. She is s/p Hep C treatment and sees Dr. Smith as her GI but has not seen her for f/u after her Hep C treatment as of yet. She denied fever, but admitted to chills and myalgias and has had no sick contacts recently. ED Course: CTA, CXR, Abdominal U/S, CT dissection protocol 1L NS, Toradol, Benedryl, Reglan, Protonix IV, Zofran - Allergies/Adverse Reactions Allergies Allergy/AdvReac Type Severity Reaction Status Date / Time codeine Allergy Verified 02/12/20 14:58 - Home Medications Medication Instructions Recorded Confirmed Type Albuterol Sulfate [Ventolin HFA] 2 puff PO PRN PRN 01/05/19 09/28/20 History Aspirin [Aspir-Low] 1 tab PO DAILY 01/05/19 01/05/19 History Divalproex Sodium [Depakote] 1 tab PO HS 01/05/19 09/28/20 History Gabapentin 1 tab PO HS 01/05/19 01/05/19 History Iron,Carbonyl [Feosol] 65 mg PO DAILY 01/05/19 01/05/19 History Levothyroxine Sodium 1 tab PO DAILY-AC 01/05/19 01/05/19 History Omeprazole 1 tab PO QAM 01/05/19 01/05/19 History QUEtiapine Fumarate [SEROquel] 1 tab PO HS 01/05/19 01/05/19 History Acetaminophen W/ Codeine 1 tab PO Q8H PRN tab 01/08/19 Rx [Acetaminophen/Codeine #3] Dexlansoprazole [Dexilant] 60 mg PO 09/28/20 History Famotidine 40 mg PO 09/28/20 History Gabapentin 300 mg PO TID 09/28/20 09/28/20 History QUEtiapine Fumarate [Seroquel] 300 mg PO 09/28/20 History Sertraline HCl [Zoloft] 100 mg PO DAILY 09/28/20 09/28/20 History - History PMHx: -Graves -COPD -Lupus -OA -CKD 3 -Hep C -Depression/Anxiety PSHx: -Hyterectomy for endometrial cancer -R wrist FHx: -Mother: Thyroid dz and Lupus Social: -Currently smoking about 5 cigs/day, has been smoking since 14 y/o -No ETOH current use -THC use - Review of Systems General: reports: fever/chills. denies: fatigue Eyes: denies: vision changes ENT: denies: nasal congestion, rhinorrhea Respiratory: denies: cough, congestion, shortness of breath Cardiovascular: denies: chest pain, palpitation Gastrointestinal: reports: nausea, abdominal pain. denies: vomiting, diarrhea, constipation Genitourinary: denies: incontinence, dysuria, polyuria Skin: denies: rashes Musculoskeletal: denies: pain, tenderness Neurological: denies: numbness, syncope - Vital signs BP: 122/79, MAP: 93, Pulse: 89, Resp: 15, Pain: 6, O2 sat: 97 on (Room Air), Time: 09/28/2020 10:30. - Physical Exam Constitutional: awake, alert and oriented, well developed -Constitutional: uncomfortable HEENT: normocephalic and atraumatic, grossly normal vision, grossly normal hearing Neck: supple Chest: other -Chest: palpable substernal pain Heart: RRR, normal S1/S2, no murmurs/rubs/gallops Lungs: CTAB, no respiratory distress, good air movement, no rales/rhonchi, no wheezing, no retractions Abdomen: bowel sounds present, no masses/distention, no hernias -Abdomen: diffusely tender in all four quadrants, no peritoneal signs, McBurney neg, Kim sign neg, LUQ pain TTP extending to L side and thoracic area Musculoskeletal: normal tone Neurological: normal sensation Skin: no rash/lesions, good turgor Heme/Lymphatic: no unusual bruising or bleeding Psychiatric: good judgment and insight, intact recent and remote memory, other (distressed) FMR H&P: Results - Labs Result Diagrams: 09/28/20 09:13 09/28/20 09:13 Lab results: WBC 15.8 thou/uL (4.8-10.8) H 09/28/20 09:13 Hgb 14.2 g/dL (12.0-16.0) 09/28/20 09:13 Hct 42.0 % (36.0-47.0) 09/28/20 09:13 MCV 96.1 fL (78.0-98.0) 09/28/20 09:13 Plt Count 288 thou/uL (130-400) 09/28/20 09:13 Neutrophils % 58.3 % (42.0-75.0) 09/28/20 09:13 Sodium 138 mmol/L (136-145) 09/28/20 09:13 Potassium 4.1 mmol/L (3.5-5.1) 09/28/20 09:13 Chloride 105 mmol/L (98-107) 09/28/20 09:13 Carbon Dioxide 23 mmol/L (22-29) 09/28/20 09:13 BUN 11 mg/dL (9.8-20.1) 09/28/20 09:13 Creatinine 0.85 mg/dL (0.6-1.1) 09/28/20 09:13 Glucose 112 mg/dL (70-105) H 09/28/20 09:13 Lactic Acid 1.3 mmol/L (0.5-2.2) 09/28/20 10:36 Calcium 8.9 mg/dL (7.8-10.44) 09/28/20 09:13 Total Bilirubin 0.3 mg/dL (0.2-1.2) 09/28/20 09:13 AST 17 U/L (5-34) 09/28/20 09:13 ALT 11 U/L (8-55) 09/28/20 09:13 Alkaline Phosphatase 113 U/L (40-110) H 09/28/20 09:13 Serum Total Protein 7.6 g/dL (6.0-8.3) 09/28/20 09:13 Albumin 3.8 g/dL (3.5-5.0) 09/28/20 09:13 Lipase 10 U/L (8-78) 09/28/20 09:13 Urine Ketones Negative mg/dL (Negative) 09/28/20 10:44 Urine Blood Negative (Negative) 09/28/20 10:44 Urine Nitrite Negative (Negative) 09/28/20 10:44 Ur Leukocyte Esterase 25 [place]/uL (Negative) A 09/28/20 10:44 Urine RBC 0-3 HPF (0-3) 09/28/20 10:44 Urine WBC 4-6 HPF (0-3) A 09/28/20 10:44 Ur Squamous Epith Cells 4-6 HPF (0-3) A 09/28/20 10:44 Urine Bacteria Rare-Few HPF (None Seen) 09/28/20 10:44 - EKG Interpretation EKG: sinus tachycardia no T wave changes - Radiology Interpretation Chest x-ray Status: report reviewed by me Additional comment: No acute cardiac process Other Status: report reviewed by me (CTA showed no PE, CT dissection protocol did not show dissection, no abnormality of pancreas or spleen) US - abdomen Status: report reviewed by me (CBD 0.1cm no dialated, no gallstones seen) FMR H&P: A/P - Problem List (1) Abdominal pain Current Visit: Yes Status: Acute Code(s): R10.9 - UNSPECIFIED ABDOMINAL PAIN Qualifiers: Abdominal location: left upper quadrant Qualified Code(s): R10.12 - Left upper quadrant pain (2) COPD (chronic obstructive pulmonary disease) Current Visit: No Status: Chronic - Plan ##Diffuse Abdominal Pain, LUQ Pain Pt presenting with abdominal pain and discomfort today. Imaging in ED r/o disse ction, PE, abnormalities of pancreas, spleen, as well as unremarkable abdominal ultrasound for cholecystitis and CBD dilation. Lipase and electrolytes were unremarkable. White count elevated at 16 but could be stress response. Pt was tachycardic on arrival and blood and urine cultures drawn however, pt not having urinary symptoms at this time and UA was negative. Pain very reproducible on palpation. Abdomen not acute in nature, based on exam pain is epigastric and LUQ in nature. -S/p toradol, GI cocktail, PPI IV, 1L NS in ED -EKG initially without T wave changes, troponin neg x2 -Flexirl for pain that is MSK in nature -H.pylori stool test ordered -Blood and urine cultures pending ##GERD -On chronic PPI therapy -Hx moderate sized hiatal hernia -s/p EGD and Colonoscopy 10/2019 which showed esophagitis and neg H pylori. Colonoscopy remarkable only for hemorrhoids. -Will continue PPI regimen and GI cocktail with zofran for nausea ##Hep C s/p treatment -Aware -Shown on liver biopsy on 03/03 with no cirrhosis and some autoimmune element to this -Pathology report stated that if patient's liver function and alk phos has not improved with treatment patient could have element of PBC -Pt f/u with Dr. Smith for GI outpatient Chronic Conditions: ##Hypothyroidism: continue home meds ##COPD: continue home meds ##CKD 3: aware, will be careful with NSAID use ##Depression/Anxiety: aware, continue home meds ##Lupus: aware, pt is not on any medication at this time DIET: HH VTE: SCDs CODE: FULL PCP: Trisha Dispo: Will admit for observation overnight. Hopeful that medications for pain control and GI symptoms will help improve patient's condition. FMR H&P: Upper Level - Plan Date/Time: 09/28/20 1142 I, Dario Baltazar, have evaluated this patient and agree with findings/plan as outlined by transportation logistics internship resident. Pertinent changes/additions are listed here. See Osteology Teacher note for full H&P. HPI/ROS: 55yo F with h/o COPD, Lupus, Hep C s/p treatment, Bipolar who presented with LUQ pain. Was seen at PCP clinic this AM and sent to ED for further eval due to nature of sxs. Describes 2 weeks of abd, sharp stabbing pain, LUQ radiating to back. Not associated with PO intake. No recent illness. Associated 2 weeks of congestion. Normal BM daily. No urinary sxs. Mild nausea and GERD, no vomiting. No hematuria, hematochezia, melena. Recently completed Hep C treatment. Pain and sxs not improved with meds given in ED. PE: 122/79, 89, 97 RA, 15, 99% RA, 86kg A/P: 55yo F with h/o COPD, Lupus, Hep C s/p treatment, Bipolar who presented with LUQ pain. #LUQ pain - 2 week history, worsening over past 2 days - Lipase 10 - RUQ US normal gallbladder, heptocellular dysfunction likely 2/2 recently treated Hep C - CT Dissection with moderate hiatal hernia, fatty liver, likely compression fx of T11, L1, L3; negative for aortic dissection - Trop <0.010, will trend x2 - UA clean - CXR no acute process - Protonix, reglan, benadryl, finesse, toradol, 1L NS in ED with minimal improvement - Pain reproducible with palpation, suspect GERD with hiatal hernia vs MSK in nature - ruled out pancreatitis, aortic dissection, pneumonia, pneumothorax, ACS, gallbladder disease, bowel obstruction - Flexeril and GI cocktail for sxs relief #GERD - likely contributing to above, continue home PPI and given GI cocktail - Will need continued OP GI follow up - EGD 10/2019 mild esophagitis. H pylori negative. #Hep C s/p treatment - contributing to liver findings on imaging #Bipolar - aware, home meds PCP: MARY Georges Code: Full Diet: Regular VTE: SCDs IVF: SL Dispo: Admit to medical obs for LUQ pain, likely GERD vs MSK. Trend trop. Likely discharge tomorrow for continued OP GI follow up.
[2020-09-28] MEDS ORDERED: diphenhydrAMINE 50 MG/ML VIAL ONE (11:45)
[2020-09-28] MEDS ORDERED: Metoclopramide 10 MG/10 ML UDCUP ONE (11:45)
[2020-09-28] MEDS ORDERED: Pantoprazole 40 MG VIAL ONE (11:45)
[2020-09-28] MEDS ORDERED: Metoclopramide HCl 10 MG/2 ML VIAL ONE (11:45)
[2020-09-28] MEDS ORDERED: Ondansetron ODT 4 MG TAB PO PRN (12:49)
[2020-09-28] MEDS ORDERED: Ondansetron PF 4 MG/2 ML Vial IVP PRN (12:49)
[2020-09-28] MEDS ORDERED: Lidocaine 2% Viscous Solution 10 ML, Aluminum & Magnesium Hydroxide 30 ML SSW SCH ×2 (13:00→17:15)
[2020-09-28] MEDS ORDERED: Non-Formulary Item 1 EACH (Albuterol Sulfate [Ventolin Hfa] 8 GM Hfa.Aer.Ad) PO PRN (13:13)
[2020-09-28] MEDS ORDERED: Cyclobenzaprine 10 MG TAB PO SCH ×2 (13:15→17:15)
[2020-09-28] MEDS ORDERED: PROVENTIL INHALER 6.7 G (200 INHALATIONS) INH PRN (13:39)
[2020-09-28 14:01] LABS: SARS-CoV-2 NAA Rapid Test Not Detected (NotDetected)
[2020-09-28 14:11] LABS: Troponin I Less than 0.010 ng/mL (< 0.028)
[2020-09-28 16:37] VITALS: BMI 34.2
[2020-09-28] MEDS: Gabapentin 300 MG CAP PO SCH ×2 (16:50→20:41)
[2020-09-28] MEDS ORDERED: Famotidine 20 MG TAB PO SCH (21:00)
[2020-09-28] MEDS ORDERED: Divalproex Sodium DR 500 MG TAB PO SCH ×2 (21:00)
[2020-09-29] MEDS ORDERED: Calcium Carbonate 500 MG ChewTAB PO PRN ×2 (00:51→05:04)
[2020-09-29] MEDS ORDERED: Famotidine 20 MG TAB PO SCH ×2 (01:00→09:00)
[2020-09-29 06:12] LABS: Eosinophils 1 % (0-10); Lymphocytes 69 % (21-51); MDiff Complete? YES; Mean Corpuscular HGB CONC 33.3 g/dL (32.0-36.0); Mean Corpuscular Hemoglobin 32.1 pg (27.0-31.0); Mean Corpuscular Volume 96.4 fL (78.0-98.0); Mean Platelet Volume 10.4 fL (7.4-10.4); Monocytes 1 % (0-10); Neutrophil 26 % (42-75); Platelet Count 271 thou/uL (130-400); Platelet Morphology Comment Appears Adequate; RBC Distribution Width 13.6 % (11.5-14.5); RBC Morphology Normal; Reactive Lymphocytes 3 % (0-10); Red Blood Cell (RBC) Count 4.04 mill/uL (4.20-5.40); White Blood Cell (WBC) Count 7.2 thou/uL (4.8-10.8)
--- NOTE | 2020-09-29 06:15 | PDOC.FM ---
- Subjective Subjective: Pt resting in bed this AM. No acute events overnight. States that she is still uncomfortable from her pain. - Objective Vital Signs & Weight: Vital Signs (12 hours) Temp Pulse Resp BP Pulse Ox 09/29/20 04:00 98.5 F 83 17 111/72 93 L 09/28/20 23:46 98.2 F 93 18 106/58 L 93 L 09/28/20 19:15 97.4 F L 85 15 103/89 94 L Weight Weight 90.407 kg I&O: 09/27/20 09/28/20 09/29/20 06:59 06:59 06:59 Intake Total 480 Balance 480 Result Diagrams: 09/29/20 05:02 09/29/20 05:02 Phys Exam - Physical Examination Constitutional: NAD HEENT: moist MMs Neck: supple Respiratory: no wheezing, no rales, no rhonchi, clear to auscultation bilateral Cardiovascular: RRR, no significant murmur, no rub Gastrointestinal: soft, no distention, positive bowel sounds diffusely tender Musculoskeletal: pulses present Neurological: moves all 4 limbs Psychiatric: normal affect, A&O x 3 Skin: normal turgor Dx/Plan (1) Abdominal pain Code(s): R10.9 - UNSPECIFIED ABDOMINAL PAIN Status: Acute Qualifiers: Abdominal location: left upper quadrant Qualified Code(s): R10.12 - Left upper quadrant pain (2) COPD (chronic obstructive pulmonary disease) Status: Chronic - Plan Plan: ##Diffuse Abdominal Pain, LUQ Pain Pt presenting with abdominal pain and discomfort today. Imaging in ED r/o dissection, PE, abnormalities of pancreas, spleen, as well as unremarkable abdominal ultrasound for cholecystitis and CBD dilation. Lipase and electrolytes were unremarkable. White count elevated at 16 but could be stress response. Pt w as tachycardic on arrival and blood and urine cultures drawn however, pt not having urinary symptoms at this time and UA was negative. Pain very reproducible on palpation. Abdomen not acute in nature, based on exam pain is epigastric and LUQ in nature. -S/p toradol, GI cocktail, PPI IV, 1L NS in ED -EKG initially without T wave changes, troponin neg x2 -Flexirl for pain that is MSK in nature -H.pylori stool test ordered -Blood and urine cultures pending ##GERD -On chronic PPI therapy -Hx moderate sized hiatal hernia -s/p EGD and Colonoscopy 10/2019 which showed esophagitis and neg H pylori. Colonoscopy remarkable only for hemorrhoids. -Will continue PPI regimen and GI cocktail with zofran for nausea ##Hep C s/p treatment -Aware -Shown on liver biopsy on 03/03 with no cirrhosis and some autoimmune element to this -Pathology report stated that if patient's liver function and alk phos has not improved with treatment patient could have element of PBC -Pt f/u with Dr. Smith for GI outpatient Chronic Conditions: ##Hypothyroidism: continue home meds ##COPD: continue home meds ##CKD 3: aware, will be careful with NSAID use ##Depression/Anxiety: aware, continue home meds ##Lupus: aware, pt is not on any medication at this time DIET: HH VTE: SCDs CODE: FULL PCP: Trisha Dispo as of 09/29: Admitted for observation. Will collect H.pylori test today. Will d/c home later today.
[2020-09-29 06:36] LABS: ALT (SGPT) 9 U/L (8-55); AST (SGOT) 17 U/L (5-34); Albumin 3.5 g/dL (3.5-5.0); Alkaline Phosphatase 100 U/L (40-110); Anion Gap 14 mmol/L (10-20); BUN (Urea Nitrogen) 15 mg/dL (9.8-20.1); Bilirubin, Total 0.3 mg/dL (0.2-1.2); Calc. Creatinine Clearance 101 mL/min (70-130); Calcium 8.5 mg/dL (7.8-10.44); Carbon Dioxide 25 mmol/L (22-29); Chloride 104 mmol/L (98-107); Globulin 3.3 g/dL (2.4-3.5); Glucose 90 mg/dL (70-105); Potassium 4.2 mmol/L (3.5-5.1); Protein, Total 6.8 g/dL (6.0-8.3); Sodium 139 mmol/L (136-145)
[2020-09-29 07:01] LABS: Hemoglobin A1c 5.3 % (4.0-6.0)
[2020-09-29] MEDS ORDERED: Levothyroxine 150 MCG TAB PO SCH ×2 (07:30)
[2020-09-29] MEDS: Gabapentin 300 MG CAP PO SCH ×2 (07:47→14:16)
[2020-09-29] MEDS: Simethicone Chewable 80 MG TAB PO SCH ×2 (08:47→12:36)
[2020-09-29] MEDS ORDERED: Senokot S 8.6-50 MG TAB PO SCH (09:00)
[2020-09-29] MEDS ORDERED: Non-Formulary Item 1 EACH (Famotidine [Famotidine] 40 MG Tablet) PO SCH (09:00)
[2020-09-29] MEDS ORDERED: FLU VACC QS2020-21(6MOS UP)/PF 60 MCG/0.5 ML SYRINGE IM ONE (09:00)
[2020-09-29] MEDS ORDERED: Levothyroxine Sodium 100 MCG TAB PO SCH (09:30)
[2020-09-29] MEDS ORDERED: Levothyroxine Sodium 50 MCG TAB PO SCH (10:30)
[2020-09-29] MEDS: Acetaminophen 650 MG/20.3 ML UDCUP PO PRN ×2 (10:40→14:19)
[2020-09-29] MEDS ORDERED: Lidocaine 2% Viscous Solution 10 ML, Aluminum & Magnesium Hydroxide 30 ML SSW SCH (13:00)
--- NOTE | 2020-09-29 14:08 | CT ---
CTA OF THE CHEST AND ABDOMEN UTILIZING AN AORTIC DISSECTION PROTOCOL AND 3-D REFORMATTED IMAGING INDICATION: 55-year-old female with epigastric abdominal and lower chest discomfort radiating to the left aspect of the back COMPARISON: Comparisons were made to a prior CT of the abdomen and pelvis dated March 17, 2018. FINDINGS: Aorta: No acute aortic stenosis, occlusion or aneurysmal formation demonstrated. There are mild vascu lar calcifications seen involving the visualized vasculature. There is some mild narrowing involving the proximal celiac artery. The SMA is patent. The renal arteries are patent. The SLOANE is pa tent. Central pulmonary artery: No central pulmonary embolus demonstrated. Additional thorax findings: There are areas of subsegmental volume loss involving the posterior aspec ts of the visualized lungs. No pleural effusion or pneumothorax is evident. There is a moderate size hiatal hernia. No enlarged lymph nodes are evident. Additional abdominal findings: There is fatty infiltration of the liver. The gallbladder, pancreas an d spleen appear within normal limits. The adrenal glands and kidneys appear within normal limits. No free fluid or lymphadenopathy is evident. The visualized unopacified large and small bowel appear within normal limits. Osseous structures: There are age-indeterminate superior endplate compression abnormalities of L3 and T11. There is a inferior endplate compression abnormality of L1 which is age indeterminate. There are stable appearing mild compression abnormalities involving T12, T8 and T9. IMPRESSION: 1. No appreciable aortic stenosis, occlusion or aneurysmal formation demonstrated. 2. Age-indeterminate compression abnormalities of T11, L1 and L3. Follow-up nonemergent MRI may be he lpful of the thoracic and lumbar spine without contrast to determine acuity. 3. Fatty liver. 4. Moderate size hiatal hernia. Transcribed Date/Time: 09/29/2020 2:07 PM
--- NOTE | 2020-09-29 15:27 | PRG ---
DATE OF SERVICE: 09/28/2020 ADDENDUM: This is an addendum to the note of Dr. Marilee Nicholas. I have examined and seen the patient. She is having some left upper quadrant abdominal pain with a benign exam. She will be admitted overnight for observation and trending of tropes, although she is not currently having any chest discomfort and her EKG is normal. Job ID: [id number]
--- NOTE | 2020-09-29 15:35 | PRG ---
DATE OF SERVICE: 09/29/2020 ADDENDUM: This as an addendum to the note of Dr. Marilee Nicholas. Ms. Leos is resting quietly in bed this morning, in no distress. Lab studies and imaging have all been benign. She will be discharged today to continue workup with her GI doctor as an outpatient. Job ID: [id number]
[2020-09-29 15:57] VITALS: BP 119/81; TEMP 97.9
[2020-09-30] MEDS ORDERED: Levothyroxine Sodium 100 MCG TAB PO SCH (06:00)
--- NOTE | 2020-10-02 14:42 | EKG ---
Test Reason : Blood Pressure : / mmHG Vent. Rate : 111 BPM Atrial Rate : 111 BPM P-R Int : 112 ms QRS Dur : 076 ms QT Int : 336 ms P-R-T Axes : 015 043 044 degrees QTc Int : 456 ms Sinus tachycardia Otherwise normal ECG Confirmed by NEVILLE CAMARA ([id number]), scientific publications editor ALO WARNER ([id number]) on 10/02/2020 2:41:52 PM Referred By: Confirmed By:NEVILLE CAMARA
== END 2020-09-29 15:46 | disposition home or self-care (01) ==
LOC: ERS 08:40 → ERHOLD 12:42 → T4-B 16:16
PROVIDERS: ADMIT Family Medicine; ATTEND Family Medicine
DX: R10.12 Left upper quadrant pain (principal); R07.2 Precordial pain; K21.9 Gastro-esophageal reflux disease without esophagitis; E03.9 Hypothyroidism, unspecified; E05.00 Thyrotoxicosis with diffuse goiter without thyrotoxic crisis or storm; J44.9 Chronic obstructive pulmonary disease, unspecified; M32.9 Systemic lupus erythematosus, unspecified; M19.90 Unspecified osteoarthritis, unspecified site; N18.30 Chronic kidney disease, stage 3 unspecified; B18.2 Chronic viral hepatitis C; F41.9 Anxiety disorder, unspecified; F31.9 Bipolar disorder, unspecified; F17.210 Nicotine dependence, cigarettes, uncomplicated; K44.9 Diaphragmatic hernia without obstruction or gangrene; Z79.82 Long term (current) use of aspirin; Z79.899 Other long term (current) drug therapy; Z88.5 Allergy status to narcotic agent; Z20.828 Contact with and (suspected) exposure to other viral communicable diseases
CPT/HCPCS: 0240U; 71045; 71275; 72193; 74174; 76705; 80053 ×2; 83036; 83605; 83690; 84484 ×2; 85007; 85025; 85027; 87040; 87086; 90662; 90732; 93005; G0008; G0009; 36415; 81003; 81015; 90471; C9113; J1200; J1885; J2405; J2765; Q9967

== ENCOUNTER 2021-03-20 07:38 | Emergency (ER) | payer MEDICARE, MEDICAID ==
[2021-03-20] MEDS ORDERED: Ondansetron PF 4 MG/2 ML Vial ONE (08:07)
[2021-03-20 08:41] LABS: #Basophils 0.1 thou/uL (0.0-0.2); #Lymphocytes 2.3 thou/uL (1.20-3.40); #Monocytes 0.2 thou/uL (0.11-0.59); #Neutrophils 6.4 thou/uL (1.40-6.50); %Basophils 1.4 % (0.0-1.0); %Eosinophils 0.5 % (0.0-10.0); %Lymphocytes 25.4 % (21.0-51.0); %Monocytes 2.5 % (0.0-10.0); %Neutrophils 70.2 % (42.0-75.0); Hemoglobin 15.7 g/dL (12.0-16.0); Mean Corpuscular HGB CONC 33.4 g/dL (32.0-36.0); Mean Corpuscular Hemoglobin 31.6 pg (27.0-31.0); Mean Corpuscular Volume 94.6 fL (78.0-98.0); Mean Platelet Volume 10.3 fL (7.4-10.4); Platelet Count 246 thou/uL (130-400); Red Blood Cell (RBC) Count 4.98 mill/uL (4.20-5.40); White Blood Cell (WBC) Count 9.2 thou/uL (4.8-10.8)
[2021-03-20 08:41] LABS: Bilirubin Negative (Negative); Blood, Urine Negative (Negative); Glucose, Urine (Dipstick) Negative (Negative); Ketone, Urine 15 mg/dL (Negative); Leukocyte Trace (Negative); Nitrite Negative (Negative); Protein, Urine (Dipstick) Negative (Neg-Trace)
[2021-03-20 08:45] LABS: Clarity Clear (Clear)
[2021-03-20 08:49] LABS: Bacteria/HPF None Seen HPF (None Seen); RBC/HPF None Seen HPF (0-3); Squamous Epithelial None Seen HPF (0-3); WBC/HPF None Seen HPF (0-3)
[2021-03-20 08:52] LABS: Amphetamine Not Detected (NotDetected); Barbiturates Screen Not Detected (NotDetected); Benzodiazepine Screen Not Detected (NotDetected); Cocaine Metabolite Screen Not Detected (NotDetected); Medtox Control Line Valid? VALID (VALID); Medtox Reader # READER 1; Methadone Not Detected (NotDetected); Methamphetamine Not Detected (NotDetected); Opiate Screen Not Detected (NotDetected); Oxycodone Screen Not Detected (NotDetected); Phencyclidine (PCP) Not Detected (NotDetected); THC/Cannabinoid Screen Detected (NotDetected); Tricyclic Screen Not Detected (NotDetected)
[2021-03-20 09:00] LABS: CK (CPK) 32 U/L (29-168); Lipase 21 U/L (8-78)
[2021-03-20] MEDS ORDERED: cefTRIAXone\\ROCEPHIN 1 GM VIAL ONE (09:22)
[2021-03-20 10:01] LABS: Albumin 3.9 g/dL (3.5-5.0)
[2021-03-20 10:02] LABS: Chloride 102 mmol/L (98-107); Potassium 3.2 mmol/L (3.5-5.1); Sodium 138 mmol/L (136-145)
[2021-03-20 10:03] LABS: Calcium 8.9 mg/dL (7.8-10.44); Glucose 85 mg/dL (70-105)
[2021-03-20 10:04] LABS: Globulin 4.5 g/dL (2.4-3.5); Protein, Total 8.4 g/dL (6.0-8.3)
[2021-03-20 10:05] LABS: Anion Gap 18 mmol/L (10-20); Bilirubin, Total 0.5 mg/dL (0.2-1.2); Carbon Dioxide 21 mmol/L (22-29)
[2021-03-20 10:06] LABS: Alcohol Less than 10 mg/dL (Less than 10)
[2021-03-20 10:07] LABS: Alkaline Phosphatase 90 U/L (40-110); Calc. Creatinine Clearance 0 mL/min (70-130)
[2021-03-20 10:08] LABS: AST (SGOT) 53 U/L (5-34); BUN (Urea Nitrogen) 6 mg/dL (9.8-20.1)
[2021-03-20 10:09] LABS: Salicylate Less than 8.0 mg/dL (15.0-30.0)
[2021-03-20 10:10] LABS: ALT (SGPT) 15 U/L (8-55)
[2021-03-20 10:45] LABS: SARS-CoV-2 NAA Rapid Test DETECTED (NotDetected)
== END 2021-03-20 10:08 | disposition home or self-care (01) ==
LOC: ERS 07:38
DX: U07.1 COVID-19 (principal); J12.89 Other viral pneumonia; E86.0 Dehydration; E03.9 Hypothyroidism, unspecified; F12.90 Cannabis use, unspecified, uncomplicated; R11.2 Nausea with vomiting, unspecified; J44.9 Chronic obstructive pulmonary disease, unspecified; M81.0 Age-related osteoporosis without current pathological fracture; Z86.19 Personal history of other infectious and parasitic diseases; F17.210 Nicotine dependence, cigarettes, uncomplicated; Z79.899 Other long term (current) drug therapy
CPT/HCPCS: 71045; 74018; 80306; 80307; 82550; 83690; 84484; 93005; U0002; U0005; 36415; 80053; 81003; 81015; 84443; 85025; 96365; 96375; J0696; J2405

== ENCOUNTER 2021-07-22 09:14 | Emergency (ER) | payer MEDICARE, MEDICAID ==
[2021-07-22 10:19] LABS: Hemoglobin 15.5 g/dL (12.0-16.0); Mean Corpuscular HGB CONC 32.4 g/dL (32.0-36.0); Mean Corpuscular Hemoglobin 31.2 pg (27.0-31.0); Mean Corpuscular Volume 96.2 fL (78.0-98.0); Mean Platelet Volume 10.8 fL (7.4-10.4); Platelet Count 233 thou/uL (130-400); RBC Distribution Width 14.2 % (11.5-14.5); Red Blood Cell (RBC) Count 4.97 mill/uL (4.20-5.40); White Blood Cell (WBC) Count 13.7 thou/uL (4.8-10.8)
[2021-07-22 10:41] LABS: Eosinophils 1 % (0-10); Lymphocytes 53 % (21-51); MDiff Complete? YES; Monocytes 10 % (0-10); Neutrophil 36 % (42-75); Platelet Morphology Comment Appears Adequate; RBC Morphology Normal
[2021-07-22 10:44] LABS: ALT (SGPT) 9 U/L (8-55); AST (SGOT) 11 U/L (5-34); Albumin 4.2 g/dL (3.5-5.0); Alkaline Phosphatase 105 U/L (40-110); Anion Gap 10 mmol/L (10-20); BUN (Urea Nitrogen) 20 mg/dL (9.8-20.1); Bilirubin, Total 0.2 mg/dL (0.2-1.2); Calc. Creatinine Clearance 0 mL/min (70-130); Calcium 9.4 mg/dL (7.8-10.44); Carbon Dioxide 30 mmol/L (22-29); Chloride 104 mmol/L (98-107); Globulin 3.6 g/dL (2.4-3.5); Glucose 94 mg/dL (70-105); Lipase 21 U/L (8-78); Magnesium 2.3 mg/dL (1.6-2.6); Potassium 4.4 mmol/L (3.5-5.1); Protein, Total 7.8 g/dL (6.0-8.3); Sodium 140 mmol/L (136-145)
[2021-07-22] MEDS ORDERED: Pantoprazole 40 MG VIAL ONE (10:44)
[2021-07-22] MEDS ORDERED: Lidocaine Viscous Sol 2% 15 ml UD Cup ONE (11:22)
[2021-07-22] MEDS ORDERED: Ondansetron PF 4 MG/2 ML Vial ONE ×2 (11:23)
[2021-07-22] MEDS ORDERED: Mag-Al 1200 mg/1200 mg/30 ML UDCUP ONE (11:23)
[2021-07-22] MEDS ORDERED: Iopamidol-370 76% 500 ML 1 ML ONE (12:02)
[2021-07-22] MEDS ORDERED: Iopamidol 370 76% 50 ML VIAL FS ONE (12:02)
== END 2021-07-22 14:19 | disposition home or self-care (01) ==
LOC: ERS 09:14
DX: K92.2 Gastrointestinal hemorrhage, unspecified (principal); I10 Essential (primary) hypertension; E03.9 Hypothyroidism, unspecified; K21.9 Gastro-esophageal reflux disease without esophagitis; J44.9 Chronic obstructive pulmonary disease, unspecified; M32.9 Systemic lupus erythematosus, unspecified; M41.9 Scoliosis, unspecified; M81.0 Age-related osteoporosis without current pathological fracture; Z79.82 Long term (current) use of aspirin; Z79.899 Other long term (current) drug therapy; F17.210 Nicotine dependence, cigarettes, uncomplicated
CPT/HCPCS: 74177; 80053; 82274; 83690; 83735; 85025; 93005; 96372; 96374; 96375; C9113; J0500; J2405; Q9967

== ENCOUNTER 2022-05-03 12:55 | Outpatient (CLI) | payer MEDICARE, MEDICAID | END 2022-05-03 12:56 | disposition home or self-care (01) | LOC: BICMAMMO 12:55 | PROVIDERS: ATTEND Student in an Organized Health Care Education/Training Program | DX: Z12.31 Encounter for screening mammogram for malignant neoplasm of breast (principal) | CPT/HCPCS: 77063; 77067 ==

== ENCOUNTER 2022-06-20 09:32 | Outpatient (CLI) | payer MEDICARE, MEDICAID | END 2022-06-20 09:33 | disposition home or self-care (01) | LOC: LABBT 09:32 | PROVIDERS: ATTEND Internal Medicine Gastroenterology | DX: K44.9 Diaphragmatic hernia without obstruction or gangrene (principal); K21.9 Gastro-esophageal reflux disease without esophagitis; N18.2 Chronic kidney disease, stage 2 (mild); Z20.822 Contact with and (suspected) exposure to COVID-19 | CPT/HCPCS: 87811 ==

== ENCOUNTER → 2022-07-14 | Day surgery (SDC) | payer MEDICARE, MEDICAID | LOC: SDC 08:22 | PROVIDERS: ATTEND Family Medicine Sports Medicine | PROC: 4A0B7BZ Measurement of Gastrointestinal Pressure, Via Natural or Artificial Opening (ICD-10-PCS; principal; 2022-07-14) | DX: K21.9 Gastro-esophageal reflux disease without esophagitis (principal); K44.9 Diaphragmatic hernia without obstruction or gangrene; D64.9 Anemia, unspecified; H44.9 Unspecified disorder of globe; N18.9 Chronic kidney disease, unspecified; Z79.82 Long term (current) use of aspirin; Z79.890 Hormone replacement therapy; Z79.899 Other long term (current) drug therapy; Z87.891 Personal history of nicotine dependence; Z88.5 Allergy status to narcotic agent | CPT/HCPCS: 91010 ==

== ENCOUNTER 2022-09-21 11:03 | Outpatient (CLI) | payer MEDICARE, MEDICAID | END 2022-09-21 11:04 | disposition home or self-care (01) | LOC: CT 11:03 | PROVIDERS: ATTEND Student in an Organized Health Care Education/Training Program | DX: Z12.2 Encounter for screening for malignant neoplasm of respiratory organs (principal); F17.210 Nicotine dependence, cigarettes, uncomplicated; K44.9 Diaphragmatic hernia without obstruction or gangrene | CPT/HCPCS: 36415; 71271; 80053; 83690; 85025 ==

== ENCOUNTER 2022-10-30 07:56 | Day surgery (SDC) | payer MEDICARE, MEDICAID ==
[2022-10-30 08:08] LABS: #Basophils 0.1 thou/uL (0.0-0.2); #Eosinphils 0.1 thou/uL (0.0-0.7); #Lymphocytes 4.2 thou/uL (1.20-3.40); #Monocytes 1.2 thou/uL (0.11-0.59); #Neutrophils 6.4 thou/uL (1.40-6.50); %Basophils 0.5 % (0.0-1.0); %Eosinophils 0.9 % (0.0-10.0); %Monocytes 9.6 % (0.0-10.0); %Neutrophils 53.9 % (42.0-75.0); Hemoglobin 13.3 g/dL (12.0-16.0); Mean Corpuscular HGB CONC 33.2 g/dL (32.0-36.0); Mean Corpuscular Volume 96.5 fl (78.0-98.0); Mean Platelet Volume 10.1 fL (7.4-10.4); Platelet Count 303 10x3/uL (130-400); RBC Distribution Width 13.2 % (11.5-14.5); Red Blood Cell (RBC) Count 4.16 mill/uL (4.20-5.40); White Blood Cell (WBC) Count 11.9 10x3/uL (4.8-10.8)
[2022-10-30 08:24] LABS: INR-International Normal Ratio 0.8; PTT 29.4 sec (22.9-36.1); Prothrombin Time 11.5 sec (12.0-14.7)
[2022-10-30] MEDS ORDERED: Fentanyl 100 MCG/2 ML VIAL ONE (09:18)
[2022-10-30] MEDS ORDERED: Midazolam HCl 2 mg/2 ml Vial ONE (09:18)
[2022-10-30 12:26] VITALS: BP 111/59; TEMP 98.1
== END 2022-10-30 11:40 | disposition home or self-care (01) ==
LOC: ULT 07:56
PROVIDERS: ATTEND Physician Assistant Medical
PROC: 0FB23ZX Excision of Left Lobe Liver, Percutaneous Approach, Diagnostic (ICD-10-PCS; principal; 2022-10-30)
DX: B18.2 Chronic viral hepatitis C (principal); K74.00 Hepatic fibrosis, unspecified; K21.9 Gastro-esophageal reflux disease without esophagitis; K44.9 Diaphragmatic hernia without obstruction or gangrene; K22.4 Dyskinesia of esophagus; R76.8 Other specified abnormal immunological findings in serum; Z79.82 Long term (current) use of aspirin; Z79.890 Hormone replacement therapy; Z79.899 Other long term (current) drug therapy; Z88.5 Allergy status to narcotic agent
CPT/HCPCS: 47000; 76942; 85025; 85610; 85730; 88307; 88313; J2250; J3010

== ENCOUNTER 2023-04-13 05:48 | Observation (INO) | payer OTHER, MEDICAID ==
[2023-04-12 11:25] VITALS: BMI 26.5
[2023-04-13] MEDS ORDERED: Dexmedetomidine 200 MCG/2 ML VIAL ONE (06:59)
[2023-04-13] MEDS ORDERED: fentaNYL PF 100 MCG/2 ML SYRINGE ONE (06:59)
[2023-04-13] MEDS ORDERED: Bupivacaine/Epinephrine 0.25% 30 ML VIAL ONE (07:51)
[2023-04-13] MEDS ORDERED: CEFAZOLIN 2 GM VIAL ONE (08:01)
[2023-04-13] MEDS ORDERED: Sodium Chloride 0.9% 100 ML ONE (08:01)
[2023-04-13] MEDS ORDERED: PROPOFOL 200 MG/20 ML VIAL ONE (08:27)
[2023-04-13] MEDS ORDERED: NEOSTIGMINE 3 MG/3 ML SYR 3 MG/3 ML SYRINGE ONE (08:27)
[2023-04-13] MEDS ORDERED: Dexamethasone 20 MG/5 ML VIAL ONE (08:27)
[2023-04-13] MEDS ORDERED: PHENYLEPHRINE-NS 100 MCG/ML 10 ML SYRINGE ONE (08:27)
[2023-04-13] MEDS ORDERED: Ketorolac Tromethamine 30 MG/ML VIAL ONE (08:27)
[2023-04-13] MEDS ORDERED: Rocuronium Bromide 10 MG/ML (10ML VIAL) ONE (08:27)
[2023-04-13] MEDS ORDERED: Ondansetron PF 4 MG/2 ML Vial ONE (08:27)
[2023-04-13] MEDS ORDERED: Lidocaine 1% PF 5 ML VIAL ONE (08:27)
[2023-04-13] MEDS ORDERED: Glycopyrrolate 0.2 MG/ML 5 ML SYRINGE ONE (08:27)
[2023-04-13] MEDS ORDERED: HYDROmorphone 2 MG/ML VIAL ONE (09:45)
[2023-04-13] MEDS ORDERED: Promethazine HCl 25 MG/ML VIAL IM PRN (10:02)
[2023-04-13] MEDS ORDERED: diphenhydrAMINE 50 MG/ML VIAL IVP PRN (10:02)
[2023-04-13] MEDS ORDERED: hydrALAZINE 20 MG/ML VIAL SLOW IVP PRN (10:02)
[2023-04-13] MEDS ORDERED: Morphine 4 MG/ML VIAL SLOW IVP PRN (10:02)
[2023-04-13] MEDS ORDERED: Dextrose 5% in Water 1,000 ML IV PRN (10:02)
[2023-04-13] MEDS ORDERED: Glucagon 1 MG/ML KIT IM PRN (10:02)
[2023-04-13] MEDS ORDERED: Dextrose 50% Abboject 50 ML SYRINGE SLOW IVP PRN (10:02)
[2023-04-13] MEDS ORDERED: Naloxone HCl 0.4 mg/ml Vial ONE (11:20)
[2023-04-13] MEDS ORDERED: fentaNYL 50 mcg/mL 1 mL Vial ONE (12:12)
[2023-04-13] MEDS: D5 1/2 NS w/20 mEq KCL 1,000 ML IV SCH ×2 (13:05→17:08)
[2023-04-13] MEDS: Ondansetron PF 4 MG/2 ML Vial IVP PRN (14:36)
[2023-04-13] MEDS: Morphine 2 MG/ML VIAL SLOW IVP PRN ×2 (14:44→19:58)
[2023-04-13] MEDS: CEFAZOLIN 2 GM in Sodium Chloride 0.9% 100 ML IVPB SCH ×2 (17:08→23:31)
[2023-04-13] MEDS: Hydrocodone-Acetamin 15 ML UDCUP PO PRN (23:37)
[2023-04-14] MEDS: Morphine 2 MG/ML VIAL SLOW IVP PRN ×3 (01:19→10:30)
[2023-04-14] MEDS: Ipratropium/Albuterol 3 ML NEB NEB PRN ×2 (01:47→16:11)
[2023-04-14] MEDS: D5 1/2 NS w/20 mEq KCL 1,000 ML IV SCH (03:16)
[2023-04-14] MEDS: Hydrocodone-Acetamin 15 ML UDCUP PO PRN ×2 (05:31→18:43)
[2023-04-14 05:51] LABS: #Monocytes 1.3 thou/uL (0.11-0.59); #Neutrophils 8.4 thou/uL (1.40-6.50); %Basophils 0.2 % (0.0-1.0); %Eosinophils 0.1 % (0.0-10.0); %Monocytes 8.8 % (0.0-10.0); %Neutrophils 58.7 % (42.0-75.0); Hemoglobin 11.7 g/dL (12.0-16.0); Mean Corpuscular HGB CONC 33.5 g/dL (32.0-36.0); Mean Corpuscular Hemoglobin 30.2 pg (27.0-31.0); Mean Corpuscular Volume 90.2 fl (78.0-98.0); Mean Platelet Volume 13.4 fL (7.4-10.4); Platelet Count 214 10x3/uL (130-400); RBC Distribution Width 16.8 % (11.5-14.5); Red Blood Cell (RBC) Count 3.87 mill/uL (4.20-5.40); White Blood Cell (WBC) Count 14.4 10x3/uL (4.8-10.8)
[2023-04-14 06:08] LABS: Anion Gap 13 mmol/L (10-20); BUN (Urea Nitrogen) 15 mg/dL (9.8-20.1); Calc. Creatinine Clearance 71 mL/min (70-130); Calcium 8.7 mg/dL (7.8-10.44); Carbon Dioxide 23 mmol/L (22-29); Chloride 105 mmol/L (98-107); Estimated GFR 71; Glucose 138 mg/dL (70-105); Sodium 137 mmol/L (136-145)
[2023-04-14 06:36] LABS: CellaVision Operator ID lab.abc; Platelet Adequacy Comment Platelets Normal; Target Cells SLIGHT = 2-5 cells HPF (0-1)
[2023-04-14] MEDS: Pantoprazole 40 MG VIAL IVP SCH (07:52)
[2023-04-14] MEDS: Varenicline Tartrate 0.5 MG TAB PO SCH ×2 (09:47→21:04)
[2023-04-14] MEDS: Baclofen 10 MG TAB PO SCH ×3 (09:47→21:03)
[2023-04-14] MEDS: CeleCOXIB 100 MG CAP PO SCH (09:47)
[2023-04-14] MEDS: hydrOXYzine 25 MG TAB PO SCH ×3 (09:47→21:02)
[2023-04-14] MEDS: busPIRone HCl 10 MG TAB PO SCH ×3 (09:48→21:02)
[2023-04-14] MEDS: Gabapentin 400 MG CAP PO SCH ×3 (09:48→21:01)
[2023-04-14] MEDS: Sertraline 100 MG TAB PO SCH (09:48)
[2023-04-14] MEDS: Oxybutynin ER 5 MG TAB PO SCH (09:48)
[2023-04-14] MEDS: Ondansetron PF 4 MG/2 ML Vial IVP PRN (10:30)
[2023-04-14] MEDS ORDERED: QUEtiapine 300 MG TAB PO SCH (21:00)
[2023-04-14] MEDS ORDERED: Divalproex Sodium DR 500 MG TAB PO SCH (21:00)
[2023-04-14] MEDS ORDERED: Atorvastatin Calcium 20 MG TAB PO SCH (21:00)
[2023-04-14] MEDS: Timolol 0.25% Ophth Soln 5 ml Bottle L EYE SCH (21:09)
[2023-04-15] MEDS ORDERED: Levothyroxine 175 MCG TAB PO SCH (06:00)
[2023-04-15] MEDS ORDERED: Fluticasone Propionate Nasal Spray 16 gm Bottle NASAL SCH (09:00)
[2023-04-15] MEDS ORDERED: Senokot S 8.6-50 MG TAB PO SCH (09:00)
[2023-04-15] MEDS: Varenicline Tartrate 0.5 MG TAB PO SCH (09:22)
[2023-04-15] MEDS: Pantoprazole 40 MG VIAL IVP SCH ×2 (09:22→09:27)
[2023-04-15] MEDS: Timolol 0.25% Ophth Soln 5 ml Bottle L EYE SCH (09:22)
[2023-04-15] MEDS: Sertraline 100 MG TAB PO SCH (09:23)
[2023-04-15] MEDS: Baclofen 10 MG TAB PO SCH (09:23)
[2023-04-15] MEDS: Gabapentin 400 MG CAP PO SCH (09:23)
[2023-04-15] MEDS: CeleCOXIB 100 MG CAP PO SCH (09:23)
[2023-04-15] MEDS: hydrOXYzine 25 MG TAB PO SCH (09:24)
[2023-04-15] MEDS: Oxybutynin ER 5 MG TAB PO SCH (09:24)
[2023-04-15] MEDS: busPIRone HCl 10 MG TAB PO SCH (09:24)
[2023-04-15] MEDS: Ipratropium/Albuterol 3 ML NEB NEB PRN (09:30)
[2023-04-15] MEDS: Hydrocodone-Acetamin 15 ML UDCUP PO PRN (12:38)
[2023-04-15 14:23] VITALS: BP 98/64; TEMP 97.6
== END 2023-04-15 16:02 | disposition home or self-care (01) ==
LOC: SDC 05:48 → SJJU 13:24
PROVIDERS: ADMIT Surgery; ATTEND Surgery
PROC: 0BQT3ZZ Repair Diaphragm, Percutaneous Approach (ICD-10-PCS; principal; 2023-04-13)
PROC: 0DJ08ZZ Inspection of Upper Intestinal Tract, Via Natural or Artificial Opening Endoscopic (ICD-10-PCS; 2023-04-13)
PROC: 0DJ08ZZ Inspection of Upper Intestinal Tract, Via Natural or Artificial Opening Endoscopic (ICD-10-PCS; 2023-04-13)
DX: K21.9 Gastro-esophageal reflux disease without esophagitis (principal); K44.9 Diaphragmatic hernia without obstruction or gangrene; F32.A Depression, unspecified; E07.9 Disorder of thyroid, unspecified; Z86.16 Personal history of COVID-19; F17.200 Nicotine dependence, unspecified, uncomplicated; Z88.5 Allergy status to narcotic agent; Z79.82 Long term (current) use of aspirin; Z79.899 Other long term (current) drug therapy
CPT/HCPCS: 43235; 43280; 80048; 85025; 94640 ×3; 94760; J3010; 36415; C9113; J1100; J1170; J1650; J1885; J2270; J2272; J2310; J2405; J2550; J2704; J3480; J3490; J7620

== ENCOUNTER 2023-04-24 13:58 | Outpatient (CLI) | payer OTHER, MEDICAID | END 2023-04-24 13:59 | disposition home or self-care (01) | LOC: BICMAMMO 13:58 | PROVIDERS: ATTEND Student in an Organized Health Care Education/Training Program | DX: Z13.820 Encounter for screening for osteoporosis (principal); M85.851 Other specified disorders of bone density and structure, right thigh; M85.852 Other specified disorders of bone density and structure, left thigh; Z78.0 Asymptomatic menopausal state; Z82.62 Family history of osteoporosis | CPT/HCPCS: 77080 ==

== ENCOUNTER 2023-06-05 08:58 | Outpatient (CLI) | payer OTHER, MEDICAID | END 2023-06-05 08:59 | disposition home or self-care (01) | LOC: RAD 08:58 | PROVIDERS: ATTEND Surgery | DX: R13.10 Dysphagia, unspecified (principal); K22.89 Other specified disease of esophagus | CPT/HCPCS: 74220 ==

== ENCOUNTER 2024-03-20 08:41 | Outpatient (CLI) | payer MEDICARE, MEDICAID ==
[2024-03-20] MEDS ORDERED: Barium Sulfate 96% 176 GM BOT (xray ONLY) ONE (09:03)
[2024-03-20] MEDS ORDERED: E-Z-HD 98% W/W 340GM BOT (x-ray ONLY) ONE (09:03)
== END 2024-03-20 08:42 | disposition home or self-care (01) ==
LOC: RAD 08:41
PROVIDERS: ATTEND Physician Assistant
DX: R13.12 Dysphagia, oropharyngeal phase (principal); R63.30 Feeding difficulties, unspecified; K44.9 Diaphragmatic hernia without obstruction or gangrene; R19.2 Visible peristalsis
CPT/HCPCS: 74220

== ENCOUNTER 2024-04-04 12:21 | Outpatient (CLI) | payer MEDICARE, MEDICAID ==
[~2024-04-04 12:21] MED LIST: Iopamidol 370 76% 100 ML VIAL ONE
== END 2024-04-04 12:22 | disposition home or self-care (01) ==
LOC: BICCT 12:21
PROVIDERS: ATTEND Physician Assistant
DX: R13.12 Dysphagia, oropharyngeal phase (principal)
CPT/HCPCS: 70491; 82565

== ENCOUNTER 2024-04-18 10:03 | Outpatient (CLI) | payer MEDICARE, MEDICAID | END 2024-04-18 10:04 | disposition home or self-care (01) | LOC: BICCT 10:03 | PROVIDERS: ATTEND Student in an Organized Health Care Education/Training Program | DX: Z12.2 Encounter for screening for malignant neoplasm of respiratory organs (principal); F17.211 Nicotine dependence, cigarettes, in remission | CPT/HCPCS: 71271 ==

== ENCOUNTER → 2024-09-01 | Day surgery (SDC) | payer MEDICARE, MEDICAID ==
[2024-08-29 14:51] VITALS: BMI 28.3
[~2024-09-01] MED LIST changes: +Dexamethasone 20 MG/5 ML VIAL ONE; -Iopamidol 370 76% 100 ML VIAL ONE; +Midazolam HCl 2 mg/2 ml Vial ONE; +Ondansetron PF 4 MG/2 ML Vial ONE; +PHENYLEPHRINE-NS 100 MCG/ML 10 ML SYRINGE ONE; +PROPOFOL 200 MG/20 ML VIAL ONE; +ePHEDrine Sulfate 50 MG/10 ML VIAL ONE; +fentaNYL PF 100 MCG/2 ML SYRINGE ONE
== END ==
LOC: SDC/OP 09:20
PROVIDERS: ATTEND Physical Medicine & Rehabilitation
DX: M54.2 Cervicalgia (principal); M54.6 Pain in thoracic spine; M99.33 Osseous stenosis of neural canal of lumbar region; E78.5 Hyperlipidemia, unspecified; J44.9 Chronic obstructive pulmonary disease, unspecified; N18.9 Chronic kidney disease, unspecified; D63.1 Anemia in chronic kidney disease; E03.9 Hypothyroidism, unspecified; F12.90 Cannabis use, unspecified, uncomplicated; F41.9 Anxiety disorder, unspecified; F32.A Depression, unspecified; Z79.899 Other long term (current) drug therapy; Z79.890 Hormone replacement therapy; Z79.51 Long term (current) use of inhaled steroids
CPT/HCPCS: 72100; 72141; 72146; 72148; J1100; J2250; J2405; J2704

== ENCOUNTER 2024-10-28 10:07 | Outpatient (CLI) | payer MEDICARE, MEDICAID | END 2024-10-28 10:08 | disposition home or self-care (01) | LOC: RAD 10:07 | PROVIDERS: ATTEND Physician Assistant | DX: R13.12 Dysphagia, oropharyngeal phase (principal); R63.30 Feeding difficulties, unspecified | CPT/HCPCS: 74230 ==

== ENCOUNTER 2025-07-27 14:32 | Outpatient (CLI) | payer OTHER, MEDICAID | END 2025-07-27 14:33 | disposition home or self-care (01) | LOC: ULT 14:32 | PROVIDERS: ATTEND Internal Medicine Cardiovascular Disease | DX: R55 Syncope and collapse (principal) | CPT/HCPCS: 93880 ==